=== PATIENT | female | born 1930 | race Caucasian/White ===

== ENCOUNTER 2017-04-12 17:28 | Inpatient (IN) | payer OTHER ==
[~2017-04-12] VITALS: Ht 172.7 cm; Wt 93.0 kg
[2017-04-12] VITALS (12 sets, daily range): BP systolic 51–129; BP diastolic 36–66
[~2017-04-12 17:28] MED LIST: ACET325T9 PO; ACET650S19 PO; AMLO10TA2 PO; CHOL200074 PO; CITA40TA5 PO; DOCU100C28 PO; DOCU100T5 PO; DONE23TA3 PO; HYDR-971 PO; INSU100I13 SQ; INSU100V31 SQ; LISI-334 PO; LORA0.5T96 PO; MAGN2400 PO; METF500T9 PO; MULT-26 PO; PRAV40TA2 PO; SENN8.6T99 PO
[2017-04-12] MEDS ORDERED: PIPERACILLIN/TAZOBACTAM 3.375 GM in IV NORMAL SALINE 50ML 50 ML IV ONE (17:45)
[2017-04-12 18:26] LABS: BASO % 0 % (0-3); EOS % 1 % (0-3); HEMATOCRIT 38.1 % (36.0-47.0); HEMOGLOBIN 12.3 g/dL (12.0-15.5); LYMPH # 0.7 x10^3/uL (1.0-4.8); LYMPH % 10 % (24-48); MEAN CORPUSCULAR HEMOGLOBIN 30 pg (25-35); MEAN CORPUSCULAR HGB CONC 32 g/dL (31-37); MEAN CORPUSCULAR VOLUME 91 fL (79-100); MONO % 2 % (0-9); NEUT % 88 % (31-73); PLATELET COUNT 153 x10^3/uL (140-400); RED BLOOD COUNT 4.17 x10^6/uL (3.50-5.40); RED CELL DISTRIBUTION WIDTH 16.7 % (11.5-14.5); WHITE BLOOD COUNT 7.6 x10^3/uL (4.0-11.0)
[2017-04-12 18:28] LABS: BILIRUBIN,URINE NEGATIVE (NEG); GLUCOSE,URINE NEGATIVE (NEG); NITRITE,URINE POSITIVE (NEG); PROTEIN,URINE 30 mg/dL (NEG-TRACE); UROBILINOGEN,URINE 0.2 mg/dL (0.2 mg/dL)
[2017-04-12 18:34] LABS: BACTERIA,URINE MODERATE /HPF (0-FEW); WBC,URINE 20-40 /HPF (0-4)
[2017-04-12 18:35] LABS: SQUAMOUS EPITHELIAL CELL,UR FEW /LPF
[2017-04-12 19:14] LABS: GFR 52.2; POTASSIUM 5.1 mmol/L (3.5-5.1)
[2017-04-12 19:20] LABS: ALBUMIN/GLOBULIN RATIO 0.6 (1.0-1.7); MAGNESIUM 2.2 mg/dL (1.8-2.4); TOTAL BILIRUBIN 0.3 mg/dL (0.2-1.0); TOTAL PROTEIN 7.8 g/dL (6.4-8.2)
[2017-04-12] MEDS ORDERED: ONDANSETRON PF 4 MG/2 ML VIAL. IV PRN (20:30)
--- NOTE | 2017-04-12 21:54 | PHYS DOC ---
Past Medical History Past Medical History: Anxiety, Constipation, Dementia, Depression, Diabetes- Type II, Hypertension, Other Additional Past Medical Histor: Bilateral hand contractures. Past Surgical History: Other Additional Past Surgical Histo: L)masectomy, Other surgeries unk. Alcohol Use: None Drug Use: None Adult General Chief Complaint Chief Complaint: ASPIRATION HPI HPI Patient is a 87 year old female presenting to the emergency department for concern of aspiration pneumonia. Patient has chronic medical conditions and functions poorly and is a DO NOT RESUSCITATE patient but has been having choking spells after trying to eat or drink and there is concern of aspiration pneumonia. Patient cannot provide any information however she appears nontoxic but is quite cool to touch. Review of Systems Review of Systems Unable to obtain due to medical condition Current Medications Current Medications Current Medications Medications (Trade) Dose Ordered Sig/Phil Start Time Stop Time Status Last Admin Dose Admin Piperacillin Sod/ Tazobactam Sod 3.375 gm/Sodium Chloride 50 ml @ 100 mls/hr 1X ONCE 04/12/17 17:45 04/12/17 18:14 DC 04/12/17 18:29 100 MLS/HR Allergies Allergies Allergies Coded Allergies Type Severity Reaction Last Updated Verified I S O L A T I O N *CONTACT* Allergy Unknown 08/10/16 Yes No Known Medication Allergies Allergy Unknown 08/10/16 Yes Physical Exam Physical Exam Constitutional: Chronically ill elderly female HENT: Normocephalic, atraumatic, bilateral external ears normal, oropharynx dry , no oral exudates, nose normal. [] Eyes: PERRLA, EOMI, conjunctiva normal, no discharge. [] Neck: Normal range of motion, no tenderness, supple, no stridor. [] Cardiovascular:Heart rate regular rhythm, no murmur [] Lungs & Thorax: Bilateral breath sounds clear to auscultation [] Abdomen: Bowel sounds normal, soft, no tenderness, no masses, no pulsatile masses. [] Skin: Cool, dry, no erythema, no rash. [] Back: No tenderness, no CVA tenderness. [] Extremities: No tenderness, no cyanosis, no clubbing, ROM intact, no edema. [] Neurologic: Alert and oriented X 0 Current Patient Data Vital Signs Vital Signs Date Time Temp Pulse Resp B/P (MAP) Pulse Ox O2 Delivery O2 Flow Rate FiO2 04/12/17 19:12 68 28 115/61 (79) 96 04/12/17 17:42 Room Air 04/12/17 17:30 90.6 90.6 Lab Values Laboratory Tests Test 04/12/17 18:20 White Blood Count 7.6 x10^3/uL (4.0-11.0) Red Blood Count 4.17 x10^6/uL (3.50-5.40) Hemoglobin 12.3 g/dL (12.0-15.5) Hematocrit 38.1 % (36.0-47.0) Mean Corpuscular Volume 91 fL (79-100) Mean Corpuscular Hemoglobin 30 pg (25-35) Mean Corpuscular Hemoglobin Concent 32 g/dL (31-37) Red Cell Distribution Width 16.7 % (11.5-14.5) H Platelet Count 153 x10^3/uL (140-400) Neutrophils (%) (Auto) 88 % (31-73) H Lymphocytes (%) (Auto) 10 % (24-48) L Monocytes (%) (Auto) 2 % (0-9) Eosinophils (%) (Auto) 1 % (0-3) Basophils (%) (Auto) 0 % (0-3) Neutrophils # (Auto) 6.6 x10^3uL (1.8-7.7) Lymphocytes # (Auto) 0.7 x10^3/uL (1.0-4.8) L Monocytes # (Auto) 0.2 x10^3/uL (0.0-1.1) Eosinophils # (Auto) 0.0 x10^3/uL (0.0-0.7) Basophils # (Auto) 0.0 x10^3/uL (0.0-0.2) Prothrombin Time 13.0 SEC (11.7-14.0) Prothrombin Time INR 1.0 (0.8-1.1) PTT 55 SEC (24-38) H Urine Collection Type U cath Urine Color Yellow Urine Clarity Clear Urine pH 6.0 Urine Specific [place] 1.020 Urine Protein 30 mg/dL (NEG-TRACE) Urine Glucose (UA) Negative mg/dL (NEG) Urine Ketones (Stick) Negative mg/dL (NEG) Urine Blood Trace (NEG) Urine Nitrite Positive (NEG) Urine Bilirubin Negative (NEG) Urine Urobilinogen Dipstick 0.2 mg/dL (0.2 mg/dL) Urine Leukocyte Esterase Moderate (NEG) Urine RBC 1-2 /HPF (0-2) Urine WBC 20-40 /HPF (0-4) Urine Squamous Epithelial Cells Few /LPF Urine Bacteria Moderate /HPF (0-FEW) Urine Hyaline Casts Few /HPF Urine Mucus Slight /LPF Sodium Level 141 mmol/L (136-145) Potassium Level 5.1 mmol/L (3.5-5.1) Chloride Level 106 mmol/L (98-107) Carbon Dioxide Level 30 mmol/L (21-32) Anion Gap 5 (6-14) L Blood Urea Nitrogen 22 mg/dL (7-20) H Creatinine 1.0 mg/dL (0.6-1.0) Estimated GFR (Cockcroft-Gault) 52.2 BUN/Creatinine Ratio 22 (6-20) H Glucose Level 62 mg/dL (70-99) L Lactic Acid Level 1.3 mmol/L (0.4-2.0) Calcium Level 10.0 mg/dL (8.5-10.1) Magnesium Level 2.2 mg/dL (1.8-2.4) Total Bilirubin 0.3 mg/dL (0.2-1.0) Aspartate Amino Transferase (AST) 91 U/L (15-37) H Alanine Aminotransferase (ALT) 112 U/L (14-59) H Alkaline Phosphatase 135 U/L (46-116) H Creatine Kinase 59 U/L (26-192) Total Protein 7.8 g/dL (6.4-8.2) Albumin 3.0 g/dL (3.4-5.0) L Albumin/Globulin Ratio 0.6 (1.0-1.7) L Lipase 218 U/L (73-393) Thyroid Stimulating Hormone (TSH) 7.955 uIU/mL (0.358-3.74) H Laboratory Tests 04/12/17 18:20 Laboratory Tests 04/12/17 18:20 EKG EKG [] Radiology/Procedures Radiology/Procedures Chest x-ray shows normal mediastinum and normal heart size no obvious free air pneumothorax or opacity. Course & Med Decision Making Course & Med Decision Making Patient is profoundly hypo-thermic and was placed on bear hugger in addition to warm IV fluids. Patient was also placed on broad-spectrum antibiotics. Given her comorbidities and profound hypothermia she'll be placed in ICU. Patient admitted in critical condition. Critical care time of 35 minutes. Dragon Disclaimer Dragon Disclaimer This electronic medical record was generated, in whole or in part, using a voice recognition dictation system. Departure Departure Referrals: DEVIN BROWN MD (PCP) ZOHAIB CALLES DO Apr 12, 2017 21:54
[2017-04-12] MEDS ORDERED: VANCOMYCIN 1 GM in IV NORMAL SALINE 250ML 250 ML IV ONE (22:30)
[2017-04-12] MEDS ORDERED: IV NORMAL SALINE 1000ML BAG 1,000 ML IV ONE (22:30)
[2017-04-12] MEDS: DEXTROSE 50% 25 GM / 50ML DISP.SYRIN. IV PRN (22:32)
[2017-04-13] VITALS (25 sets, daily range): BP systolic 92–187; BP diastolic 49–80
[2017-04-13] MEDS ORDERED: NYST1POW2 PO (00:33)
[2017-04-13] MEDS ORDERED: NYST15CR2 TP (00:33)
--- NOTE | 2017-04-13 00:38 | ACF ---
Admission Forms Criteria FEVER Clinical Indications for Inpatient Care (Place 'X' for any and all applicable criteria): Ongoing inpatient care may be indicated for fever with ANY ONE of the following[ D] (5)(27)(28)(29)(30)(31): [ ]I. Bacteremia [ ]II. Evidence of significant systemic illness as indicated by ANY ONE of the following: [ ]a) Persistently high temperatures greater than 103.1 degrees F ( 39.5 degrees C) (oral) [ ]b) New-onset hypoxia [ ]c) Hemodynamic instability [ ]d) Mental status changes [ ]e) Decreased urine output due to developing renal insufficiency [ ]f) New focal neurologic deficit (eg, stroke) [ ]g) Seizures [ ]h) Rigors [ ]i) Dehydration or hypovolemia [ ]j) Inadequate oral intake [ ]III. Patient in the immediate postoperative period with ANY ONE of the following (E)(23)(24): [ ]a) Evidence of specific localizing infection requiring ongoing inpatient evaluation or treatment (eg,abscess, severe pneumonia, wound infection ) [ ]b) Known or suspected cause of fever requiring ongoing inpatient evaluation or treatment (eg, DVT) [ ]c) Evidence of malignant hyperthermia (eg, unexplained tachycardia and muscle rigidity after depolarizing muscular blocking agent or inhaled anesthetic agent) [X]IV. Suspected cause requiring acute care (eg, endocarditis, meningitis) [ ]V. High suspicion of bacteremia as indicated by severe constitutional symptoms in patient at high risk as indicated by ANY ONE of the following: [ ]a) Immunocompromised state [D](22) [ ]b) Age <3 years or >65 years [ ]c) Severe comorbidities (eg, poorly controlled diabetes, severe COPD) [ ]. High suspicion for fungal infection as indicated by ANY ONE of the following (22)(25): [ ]a) Febrile neutropenia (WBC <500/mm3 (0.5 X 109/L)) for >4 days despite broad spectrum antibiotics [ ]b) Imaging findings suggestive of fungal infection [ ]c) Immunocompromised state [ ]d) Immunocompromised patient colonized with Aspergillus species [ ]VII. Evidence of infection of medical devices such as implanted catheters or exposed hardware [ ]VIII. Suspected neuroleptic malignant syndrome as evidenced by ALL of the following (15): [ ]a) Recent use of neuroleptic medication (eg, haloperidol, prochlorperazine, metoclopramide) [ ]b) New-onset muscle rigidity Extended stay beyond goal length of stay for primary condition may be needed until ALL of the following are present(16)(17)(18)(19)(20)(21): [ ]a) Temperature status acceptable as indicated by ANY ONE of the following: [ ]i) Temp <38.1C (100.5 F) (oral) [ ]ii) Temp as expected for disease process and care performable at next level of care [ ]b) Hemodynamic stability [ ]c) Cultures negative or infection identified and under adequate treatment [ ]d) Behavior or mental status abnormalities absent or manageable at lower level of care (Also use Mental Status Change Criteria Form) for further information. [ ]e) Medical comorbidities absent or manageable at a lower level of care The original [facility] [employer] content created by [facility] has been revised. The portions of the content which have been revised are identified through the use of italic text or in bold, and [facility] has neither reviewed nor approved the modified material. All other unmodified content is copyright [facility]. Please see references footnoted in the original [facility] [employer] edition 2016 Admission Criteria Met?: Yes BIBI MENJIVAR Apr 13, 2017 00:37
[2017-04-13] MEDS: IV NORMAL SALINE 1000ML BAG 1,000 ML IV SCH ×2 (04:04→09:07)
[2017-04-13 04:39] LABS: BASO % 0 % (0-3); EOS % 0 % (0-3); HEMATOCRIT 34.2 % (36.0-47.0); HEMOGLOBIN 11.1 g/dL (12.0-15.5); LYMPH # 0.4 x10^3/uL (1.0-4.8); LYMPH % 7 % (24-48); MEAN CORPUSCULAR HEMOGLOBIN 29 pg (25-35); MEAN CORPUSCULAR HGB CONC 33 g/dL (31-37); MEAN CORPUSCULAR VOLUME 91 fL (79-100); MONO % 3 % (0-9); NEUT % 90 % (31-73); PLATELET COUNT 127 x10^3/uL (140-400); RED BLOOD COUNT 3.77 x10^6/uL (3.50-5.40); RED CELL DISTRIBUTION WIDTH 16.7 % (11.5-14.5); WHITE BLOOD COUNT 6.7 x10^3/uL (4.0-11.0)
[2017-04-13 04:59] LABS: CALCIUM 8.8 mg/dL (8.5-10.1); CREATININE 1.1 mg/dL (0.6-1.0); GFR 46.8; POTASSIUM 5.8 mmol/L (3.5-5.1)
[2017-04-13] MEDS: DEXTROSE 50% 25 GM / 50ML DISP.SYRIN. IV PRN (05:42)
[2017-04-13 07:48] LABS: PLT ESTIMATE DECREASED (ADEQUATE)
[2017-04-13 07:50] LABS: ANISOCYTOSIS PRESENT; TOXIC GRANULATION PRESENT
--- NOTE | 2017-04-13 07:53 | PDOC ---
Infectious Disease Note Vital Sign Vital Signs Vital Signs Date Time Temp Pulse Resp B/P (MAP) Pulse Ox O2 Delivery O2 Flow Rate FiO2 04/13/17 07:00 97.9 104 34 124/59 (80) 100 Room Air 97.9 Labs Lab Laboratory Tests Test 04/12/17 18:20 04/12/17 21:57 04/12/17 22:20 04/12/17 23:39 White Blood Count 7.6 x10^3/uL (4.0-11.0) Red Blood Count 4.17 x10^6/uL (3.50-5.40) Hemoglobin 12.3 g/dL (12.0-15.5) Hematocrit 38.1 % (36.0-47.0) Mean Corpuscular Volume 91 fL (79-100) Mean Corpuscular Hemoglobin 30 pg (25-35) Mean Corpuscular Hemoglobin Concent 32 g/dL (31-37) Red Cell Distribution Width 16.7 % (11.5-14.5) Platelet Count 153 x10^3/uL (140-400) Neutrophils (%) (Auto) 88 % (31-73) Lymphocytes (%) (Auto) 10 % (24-48) Monocytes (%) (Auto) 2 % (0-9) Eosinophils (%) (Auto) 1 % (0-3) Basophils (%) (Auto) 0 % (0-3) Neutrophils # (Auto) 6.6 x10^3uL (1.8-7.7) Lymphocytes # (Auto) 0.7 x10^3/uL (1.0-4.8) Monocytes # (Auto) 0.2 x10^3/uL (0.0-1.1) Eosinophils # (Auto) 0.0 x10^3/uL (0.0-0.7) Basophils # (Auto) 0.0 x10^3/uL (0.0-0.2) Prothrombin Time 13.0 SEC (11.7-14.0) Prothromb Time International Ratio 1.0 (0.8-1.1) Activated Partial Thromboplast Time 55 SEC (24-38) Urine Collection Type U cath Urine Color Yellow Urine Clarity Clear Urine pH 6.0 Urine Specific [place] 1.020 Urine Protein 30 mg/dL (NEG-TRACE) Urine Glucose (UA) Negative mg/dL (NEG) Urine Ketones (Stick) Negative mg/dL (NEG) Urine Blood Trace (NEG) Urine Nitrite Positive (NEG) Urine Bilirubin Negative (NEG) Urine Urobilinogen Dipstick 0.2 mg/dL (0.2 mg/dL) Urine Leukocyte Esterase Moderate (NEG) Urine RBC 1-2 /HPF (0-2) Urine WBC 20-40 /HPF (0-4) Urine Squamous Epithelial Cells Few /LPF Urine Bacteria Moderate /HPF (0-FEW) Urine Hyaline Casts Few /HPF Urine Mucus Slight /LPF Sodium Level 141 mmol/L (136-145) Potassium Level 5.1 mmol/L (3.5-5.1) Chloride Level 106 mmol/L (98-107) Carbon Dioxide Level 30 mmol/L (21-32) Anion Gap 5 (6-14) Blood Urea Nitrogen 22 mg/dL (7-20) Creatinine 1.0 mg/dL (0.6-1.0) Estimated GFR (Cockcroft-Gault) 52.2 BUN/Creatinine Ratio 22 (6-20) Glucose Level 62 mg/dL (70-99) 42 mg/dL (70-99) Lactic Acid Level 1.3 mmol/L (0.4-2.0) Calcium Level 10.0 mg/dL (8.5-10.1) Magnesium Level 2.2 mg/dL (1.8-2.4) Total Bilirubin 0.3 mg/dL (0.2-1.0) Aspartate Amino Transf (AST/SGOT) 91 U/L (15-37) Alanine Aminotransferase (ALT/SGPT) 112 U/L (14-59) Alkaline Phosphatase 135 U/L (46-116) Creatine Kinase 59 U/L (26-192) Total Protein 7.8 g/dL (6.4-8.2) Albumin 3.0 g/dL (3.4-5.0) Albumin/Globulin Ratio 0.6 (1.0-1.7) Lipase 218 U/L (73-393) Thyroid Stimulating Hormone (TSH) 7.955 uIU/mL (0.358-3.74) Glucose (Fingerstick) 33 mg/dL (70-99) 138 mg/dL (70-99) Test 04/13/17 03:55 04/13/17 06:04 White Blood Count 6.7 x10^3/uL (4.0-11.0) Red Blood Count 3.77 x10^6/uL (3.50-5.40) Hemoglobin 11.1 g/dL (12.0-15.5) Hematocrit 34.2 % (36.0-47.0) Mean Corpuscular Volume 91 fL (79-100) Mean Corpuscular Hemoglobin 29 pg (25-35) Mean Corpuscular Hemoglobin Concent 33 g/dL (31-37) Red Cell Distribution Width 16.7 % (11.5-14.5) Platelet Count 127 x10^3/uL (140-400) Neutrophils (%) (Auto) 90 % (31-73) Lymphocytes (%) (Auto) 7 % (24-48) Monocytes (%) (Auto) 3 % (0-9) Eosinophils (%) (Auto) 0 % (0-3) Basophils (%) (Auto) 0 % (0-3) Neutrophils # (Auto) 6.0 x10^3uL (1.8-7.7) Lymphocytes # (Auto) 0.4 x10^3/uL (1.0-4.8) Monocytes # (Auto) 0.2 x10^3/uL (0.0-1.1) Eosinophils # (Auto) 0.0 x10^3/uL (0.0-0.7) Basophils # (Auto) 0.0 x10^3/uL (0.0-0.2) Segmented Neutrophils % 89 % (35-66) Band Neutrophils % 1 % (0-9) Lymphocytes % 8 % (24-48) Monocytes % 2 % (0-10) Toxic Granulation Present Platelet Estimate Decreased (ADEQUATE) Large Platelets Present Anisocytosis Present Sodium Level 141 mmol/L (136-145) Potassium Level 5.8 mmol/L (3.5-5.1) Chloride Level 109 mmol/L (98-107) Carbon Dioxide Level 26 mmol/L (21-32) Anion Gap 6 (6-14) Blood Urea Nitrogen 21 mg/dL (7-20) Creatinine 1.1 mg/dL (0.6-1.0) Estimated GFR (Cockcroft-Gault) 46.8 Glucose Level 49 mg/dL (70-99) Calcium Level 8.8 mg/dL (8.5-10.1) Glucose (Fingerstick) 148 mg/dL (70-99) Objective Assessment Aspiration pneumonia Encephalopathy Hypotension responded to fluids Dementia Hypothermia Plan Plan of Care [facility] supportive care check cultures MARIA E CABALLERO MD Apr 13, 2017 07:53
--- NOTE | 2017-04-13 08:27 | RAD ---
Indication shortness of air. Change in mental status. Protocol study A single view of the chest was obtained. Comparison is made to an exam 08/14/2016. Inspiratory effort is suboptimal but similar to the previous exam. Pulmonary vasculature is normal given the level of inspiratory effort. There is no focal infiltrate. A significant change compared to the previous exam is not seen. Substantial degenerative changes are noted about the shoulders. Bipolar cardiac pacing device is noted. IMPRESSION: No acute or focal process. No significant change
--- NOTE | 2017-04-13 08:27 | CONS ---
DATE OF CONSULTATION: 04/13/2017 REQUESTING PHYSICIAN: Dr. Khris Andrade. REASON FOR CONSULTATION: Possible sepsis. HISTORY OF PRESENT ILLNESS: This is an 87-year-old -[place] female, who is a [facility], who is [facility], nonverbal for 3 years evidently, who was brought in because of she was choking on the food trying to eat or drink. The patient was noted to be hypotensive, hypothermic responded to fluids and the temperature is improving ____. The patient has been given one dose each of vancomycin, Levaquin and Zosyn and consult has been requested. The patient is nonverbal. All the information was obtained through chart review and discussing with the patient's nurse. PAST MEDICAL HISTORY: Positive for dementia, depression, diabetes, hypertension, bilateral hand contractures, has had mastectomy. SOCIAL HISTORY: Unable to obtain other than the patient is a [facility] resident with [facility]. ALLERGIES: No known drug allergies listed. CURRENT MEDICATIONS: Reviewed. REVIEW OF SYSTEMS: As per HPI, all other systems reviewed are negative. PHYSICAL EXAMINATION: GENERAL: Awake, nonverbal female, not in distress. VITAL SIGNS: Stable, afebrile. HEENT: NAD. NECK: Supple, no JVP, no lymphadenopathy. LUNGS: Clear. HEART: S1, S2 regular. ABDOMEN: Benign. EXTREMITIES: Contractures present. NEUROLOGIC: The patient does not follow commands. NEUROLOGICAL: The patient is unresponsive. LABORATORY DATA: White count is 6.7, hemoglobin 11.1, platelets 127,000. BUN 22, creatinine 1, glucose was low 33 at one point. Lactic acid normal. Urinalysis showed 20-40 wbc. Cultures are pending. Chest x-ray is no obvious infiltrate. IMPRESSION: 1. Suspected aspiration pneumonia. 2. Hypotension, responded to fluids. 3. Hypothermia. 4. Dementia. 5. Encephalopathy. RECOMMENDATIONS: I would use Zosyn, no need to use of vancomycin and Levaquin. Supportive care. We will check the cultures and continue to follow. Overall, long-term prognosis is poor. Thank you very much, Dr. Andrade for giving me the opportunity to participate in this patient's care. MARIA E CABALLERO MD DR: SHAHANA/mike JOB#: [id number] / [id number]
[2017-04-13] MEDS ORDERED: IV DEXTROSE 5% 1,000 ML IV SCH (08:45)
[2017-04-13] MEDS ORDERED: IV DEXTROSE 5% 500 ML IV ONE (08:53)
--- NOTE | 2017-04-13 09:41 | HP ---
ADMIT DATE: 04/12/2017 CHIEF COMPLAINT AND HISTORY OF PRESENT ILLNESS: This is an 87-year-old female who was brought to the Emergency Room with a concern of aspiration pneumonia. She had been choking and coughing with eating for the last several days, become less responsive, was found in the Emergency Room to be profoundly hypothermic with a temperature of 98.5 with relatively normal lab work and evidence of urinary tract infection, admitted with the likely diagnosis of sepsis related either to aspiration pneumonia or her urinary tract infection. PAST MEDICAL HISTORY: Remarkable for anxiety, dementia, depression, diabetes, hypertension. PAST SURGICAL HISTORY: She has had a prior left mastectomy. MEDICATIONS: Brought with the patient, listed on the computer and have been addressed. ALLERGIES: She has no known medication allergies. SOCIAL HISTORY: She is nonsmoker, nondrinker, does not use drugs. FAMILY HISTORY: Noncontributory. REVIEW OF SYSTEMS: Unobtainable due to her encephalopathic state where she is barely arousable and does have the underlying dementia in addition. PHYSICAL EXAMINATION: GENERAL: She is a well-developed, well-nourished female in no acute distress at rest. VITAL SIGNS: Stable. She is afebrile. She was initially somewhat hypotensive, but this is improved. HEAD, EYES, EARS, NOSE, AND THROAT: Unremarkable. NECK: Supple without any thyromegaly. CHEST: Clear to auscultation and percussion. HEART: Regular rate and rhythm without S3, S4, or murmur. ABDOMEN: Soft, nontender without hepatosplenomegaly or masses. EXTREMITIES: Without cyanosis, clubbing or edema. NEUROLOGICAL: Remarkable for the encephalopathy. She is on a Rafat Hugger for warming. Her temperature has come up in the 97.6 range. She has had a couple of episodes of hypoglycemia and upon review of her outside medicines are only possible causes for this would be the insulin, although she has taken Metformin in addition, but this normally does not cause hypoglycemia. White count is normal. She does have a left shift, however and she has been hypoglycemic, but is 148 this morning. Potassium is elevated at 5.8 this morning and creatinine at 1.1. We will recheck the potassium here later. She has so far got doses of Zosyn, Levaquin, and vancomycin and ID has been consulted to see her. IMPRESSION: Hypothermia and mental status change in a patient with multiple other problems listed above with hypomagnesemia in addition. PLAN: The patient has been admitted. Warming will be continued as needed. Dopamine will be given if blood pressures require the same level. They seemed to be improved this morning with hydration. Antibiotics will be continued and the patient will be monitored, managed and treated appropriately. ADDENDUM: The patient does seem to be doing some jerking movements during my visit, which would possibly be consistent with some seizure activity and Neurology will be asked to see her for the same. DEVIN BROWN MD DR: HALIE/mike JOB#: [id number] / [id number]
--- NOTE | 2017-04-13 09:41 | PDOC2 ---
NEUROLOGY CONSULT Date of Admission Date of Admission DATE: 04/13/17 TIME: 09:34 Reason for Consult Reason for Consult: Possible seizure activity Referring Physician Referring Physician: Dr. Andrade Source Source: Chart review History of Present Illness History of Present Illness The patient is an 87-year-old right-handed female alf resident with end -stage dementia who has not verbalized or walked in more than 3 years. She has been getting food and has been aspirating. Admission she was hypothermic and hypotensive. I am asked to see her regarding possible seizure activity. The ICU nurse does not know of any seizure activity nor are there any notations about it in the emergency department record. Past Medical History Cardiovascular: HTN, Hyperlipidemia CENTRAL NERVOUS SYSTEM: Dementia (Alzheimer's) Heme/Onc: Cancer ( breast) Psych: Anxiety, Depression Musculoskeletal: Osteoarthritis, Other ( rib fractures) Renal/: Urinary Incontinence Endocrine: Diabetes Past Surgical History Past Surgical History: Cholecystectomy, Mastectomy ( left mastectomy, right lumpectomy), Hysterectomy, Colectomy, Other ( right carpal tunnel surgery) Family History Family History: No pertinent hx Social History Social History Not obtainable Current Medications Current Medications Current Medications Piperacillin Sod/ Tazobactam Sod 3.375 gm/Sodium Chloride 50 ml @ 100 mls/hr 1X ONCE IV Last administered on 04/12/17 18:29; Start 04/12/17 at 17:45; Stop 04/12/17 at 18:14; Status DC Levofloxacin/ Dextrose 150 ml @ 100 mls/hr 1X ONCE IV Last administered on 19:55; Start 04/12/17 at 19:45; Stop 04/12/17 at 21:14; Status DC Ondansetron HCl (Zofran) 4 mg PRN Q8HRS PRN IV NAUSEA/VOMITING; Start 04/12/17 at 20:30; Stop 04/13/17 at 20:29 Dextrose (Dextrose 50%-Water Syringe) 25 gm PRN 1X PRN IV LOW BLOOD SUGAR Last administered on 04/13/17 05:42; Start 04/12/17 at 22:00 Sodium Chloride 1,000 ml @ 150 mls/hr 1X ONCE IV Last administered on 22:33; Start 04/12/17 at 22:30; Stop 04/13/17 at 05:09; Status DC Vancomycin HCl 1 gm/Sodium Chloride 250 ml @ 166.667 mls/hr 1X ONCE IV Last administered on 04/12/17 22:33; Start 04/12/17 at 22:30; Stop 04/12/17 at 23:59; Status DC Dopamine HCl/ Dextrose 250 ml @ 16.925 mls/ hr CONT PRN IV SEE I/O RECORD; Start 04/12/17 at 22:30 Sodium Chloride 1,000 ml @ 100 mls/hr Q10H IV Last administered on 04/13/17 04 :04; Start 04/13/17 at 04:00 Piperacillin Sod/ Tazobactam Sod 3.375 gm/Sodium Chloride 50 ml @ 100 mls/hr Q6HRS IV ; Start 04/13/17 at 08:00 Dextrose 1,000 ml @ 100 mls/hr Q10H IV Last administered on 04/13/17 08:45; Start 04/13/17 at 08:45; Stop 04/13/17 at 09:24; Status DC Dextrose 500 ml @ As Directed STK-MED ONCE IV ; Start 04/13/17 at 08:53; Stop at 08:54; Status DC Dextrose 1,000 ml @ 100 mls/hr Q10H IV ; Start 04/13/17 at 09:30 Active Scripts Active [place] 5-325 Tablet (Acetaminophen/Hydrocodone Bitart) 1 Each Tablet 1 Tab PO PRN TID PRN Reported Nystatin-Triamcinolone Cream (Nystatin/Triamcin) 15 Gm Cream..g. 1 [place] TP BID PRN Nystatin 1 Each Powder.ea. 1 Each PO TID Senokot (Sennosides) 8.6 Mg Tablet 1 Tab PO PRN BID Milk Of Magnesia (Magnesium Hydroxide) 2,400 Mg/10 Ml Oral.susp 30 Ml PO PRN DAILY Lantus Solostar (Insulin Glargine,Hum.rec.anlog) 100 Unit/1 Ml Insuln.pen 10 Unit SQ QHS Docusate Sodium 100 Mg Capsule 1 Cap PO DAILY Tylenol (Acetaminophen) 325 Mg Tablet 650 Mg PO PRN Q6HRS Novolog (Insulin Aspart) 100 Unit/1 Ml Vial 0 SQ QIDACHS Metformin Hcl Er (Metformin Hcl) 500 Mg Tab.er.24h 500 Mg PO DAILYWSUP Citalopram Hbr (Citalopram Hydrobromide) 40 Mg Tablet 10 Mg PO DAILY Aricept (Donepezil Hcl) 23 Mg Tablet 23 Mg PO HS Amlodipine Besylate 10 Mg Tablet 5 Mg PO DAILY Docusate Sodium 100 Mg Tablet 100 Mg PO PRN DAILY Multivitamins (Multivitamin) 1 Each Tab.chew 1 Each PO DAILY Ativan (Lorazepam) 0.5 Mg Tablet 0.5 Mg PO PRN BID PRN Allergies Allergies: Coded Allergies: I S O L A T I O N *CONTACT* (Verified Allergy, Unknown, 08/10/16) mrsa No Known Medication Allergies (Verified Allergy, Unknown, 08/10/16) ROS Review of System Unattainable Physical Exam Physical Examination PHYSICAL EXAMINATION: Vital signs: see above. General appearance is normal and in no acute distress. She is on rewarming devices HEENT: Normocephalic and nontraumatic. Eyes, nose, ears, and throat are unremarkable. Neck is supple. No lymphadenopathy. No bruits are heard over the carotid artery. No crepitus. NEUROLOGIC: She keeps eyes tightly closed. She has bilateral grass reflexes. I do not elicit any other motor activity. Reflexes are 0+ with silent plant responses. She does not respond to pinpricks inflation. She does not cooperate with cerebellar testing. There is no facial asymmetry. Vitals VITALS Vital Signs Date Time Temp Pulse Resp B/P (MAP) Pulse Ox O2 Delivery O2 Flow Rate FiO2 04/13/17 07:00 97.9 104 34 124/59 (80) 100 Room Air 97.9 Labs Labs Laboratory Tests Test 04/12/17 18:20 04/12/17 21:57 04/12/17 22:20 04/12/17 23:39 White Blood Count 7.6 x10^3/uL (4.0-11.0) Red Blood Count 4.17 x10^6/uL (3.50-5.40) Hemoglobin 12.3 g/dL (12.0-15.5) Hematocrit 38.1 % (36.0-47.0) Mean Corpuscular Volume 91 fL (79-100) Mean Corpuscular Hemoglobin 30 pg (25-35) Mean Corpuscular Hemoglobin Concent 32 g/dL (31-37) Red Cell Distribution Width 16.7 % (11.5-14.5) Platelet Count 153 x10^3/uL (140-400) Neutrophils (%) (Auto) 88 % (31-73) Lymphocytes (%) (Auto) 10 % (24-48) Monocytes (%) (Auto) 2 % (0-9) Eosinophils (%) (Auto) 1 % (0-3) Basophils (%) (Auto) 0 % (0-3) Neutrophils # (Auto) 6.6 x10^3uL (1.8-7.7) Lymphocytes # (Auto) 0.7 x10^3/uL (1.0-4.8) Monocytes # (Auto) 0.2 x10^3/uL (0.0-1.1) Eosinophils # (Auto) 0.0 x10^3/uL (0.0-0.7) Basophils # (Auto) 0.0 x10^3/uL (0.0-0.2) Prothrombin Time 13.0 SEC (11.7-14.0) Prothromb Time International Ratio 1.0 (0.8-1.1) Activated Partial Thromboplast Time 55 SEC (24-38) Urine Collection Type U cath Urine Color Yellow Urine Clarity Clear Urine pH 6.0 Urine Specific [place] 1.020 Urine Protein 30 mg/dL (NEG-TRACE) Urine Glucose (UA) Negative mg/dL (NEG) Urine Ketones (Stick) Negative mg/dL (NEG) Urine Blood Trace (NEG) Urine Nitrite Positive (NEG) Urine Bilirubin Negative (NEG) Urine Urobilinogen Dipstick 0.2 mg/dL (0.2 mg/dL) Urine Leukocyte Esterase Moderate (NEG) Urine RBC 1-2 /HPF (0-2) Urine WBC 20-40 /HPF (0-4) Urine Squamous Epithelial Cells Few /LPF Urine Bacteria Moderate /HPF (0-FEW) Urine Hyaline Casts Few /HPF Urine Mucus Slight /LPF Sodium Level 141 mmol/L (136-145) Potassium Level 5.1 mmol/L (3.5-5.1) Chloride Level 106 mmol/L (98-107) Carbon Dioxide Level 30 mmol/L (21-32) Anion Gap 5 (6-14) Blood Urea Nitrogen 22 mg/dL (7-20) Creatinine 1.0 mg/dL (0.6-1.0) Estimated GFR (Cockcroft-Gault) 52.2 BUN/Creatinine Ratio 22 (6-20) Glucose Level 62 mg/dL (70-99) 42 mg/dL (70-99) Lactic Acid Level 1.3 mmol/L (0.4-2.0) Calcium Level 10.0 mg/dL (8.5-10.1) Magnesium Level 2.2 mg/dL (1.8-2.4) Total Bilirubin 0.3 mg/dL (0.2-1.0) Aspartate Amino Transf (AST/SGOT) 91 U/L (15-37) Alanine Aminotransferase (ALT/SGPT) 112 U/L (14-59) Alkaline Phosphatase 135 U/L (46-116) Creatine Kinase 59 U/L (26-192) Total Protein 7.8 g/dL (6.4-8.2) Albumin 3.0 g/dL (3.4-5.0) Albumin/Globulin Ratio 0.6 (1.0-1.7) Lipase 218 U/L (73-393) Thyroid Stimulating Hormone (TSH) 7.955 uIU/mL (0.358-3.74) Glucose (Fingerstick) 33 mg/dL (70-99) 138 mg/dL (70-99) Test 04/13/17 03:55 04/13/17 06:04 04/13/17 08:47 White Blood Count 6.7 x10^3/uL (4.0-11.0) Red Blood Count 3.77 x10^6/uL (3.50-5.40) Hemoglobin 11.1 g/dL (12.0-15.5) Hematocrit 34.2 % (36.0-47.0) Mean Corpuscular Volume 91 fL (79-100) Mean Corpuscular Hemoglobin 29 pg (25-35) Mean Corpuscular Hemoglobin Concent 33 g/dL (31-37) Red Cell Distribution Width 16.7 % (11.5-14.5) Platelet Count 127 x10^3/uL (140-400) Neutrophils (%) (Auto) 90 % (31-73) Lymphocytes (%) (Auto) 7 % (24-48) Monocytes (%) (Auto) 3 % (0-9) Eosinophils (%) (Auto) 0 % (0-3) Basophils (%) (Auto) 0 % (0-3) Neutrophils # (Auto) 6.0 x10^3uL (1.8-7.7) Lymphocytes # (Auto) 0.4 x10^3/uL (1.0-4.8) Monocytes # (Auto) 0.2 x10^3/uL (0.0-1.1) Eosinophils # (Auto) 0.0 x10^3/uL (0.0-0.7) Basophils # (Auto) 0.0 x10^3/uL (0.0-0.2) Segmented Neutrophils % 89 % (35-66) Band Neutrophils % 1 % (0-9) Lymphocytes % 8 % (24-48) Monocytes % 2 % (0-10) Toxic Granulation Present Platelet Estimate Decreased (ADEQUATE) Large Platelets Present Anisocytosis Present Sodium Level 141 mmol/L (136-145) Potassium Level 5.8 mmol/L (3.5-5.1) Chloride Level 109 mmol/L (98-107) Carbon Dioxide Level 26 mmol/L (21-32) Anion Gap 6 (6-14) Blood Urea Nitrogen 21 mg/dL (7-20) Creatinine 1.1 mg/dL (0.6-1.0) Estimated GFR (Cockcroft-Gault) 46.8 Glucose Level 49 mg/dL (70-99) Calcium Level 8.8 mg/dL (8.5-10.1) Glucose (Fingerstick) 148 mg/dL (70-99) 52 mg/dL (70-99) Laboratory Tests Test 04/12/17 18:20 04/12/17 21:57 04/12/17 22:20 04/12/17 23:39 White Blood Count 7.6 x10^3/uL (4.0-11.0) Red Blood Count 4.17 x10^6/uL (3.50-5.40) Hemoglobin 12.3 g/dL (12.0-15.5) Hematocrit 38.1 % (36.0-47.0) Mean Corpuscular Volume 91 fL (79-100) Mean Corpuscular Hemoglobin 30 pg (25-35) Mean Corpuscular Hemoglobin Concent 32 g/dL (31-37) Red Cell Distribution Width 16.7 % (11.5-14.5) Platelet Count 153 x10^3/uL (140-400) Neutrophils (%) (Auto) 88 % (31-73) Lymphocytes (%) (Auto) 10 % (24-48) Monocytes (%) (Auto) 2 % (0-9) Eosinophils (%) (Auto) 1 % (0-3) Basophils (%) (Auto) 0 % (0-3) Neutrophils # (Auto) 6.6 x10^3uL (1.8-7.7) Lymphocytes # (Auto) 0.7 x10^3/uL (1.0-4.8) Monocytes # (Auto) 0.2 x10^3/uL (0.0-1.1) Eosinophils # (Auto) 0.0 x10^3/uL (0.0-0.7) Basophils # (Auto) 0.0 x10^3/uL (0.0-0.2) Prothrombin Time 13.0 SEC (11.7-14.0) Prothromb Time International Ratio 1.0 (0.8-1.1) Activated Partial Thromboplast Time 55 SEC (24-38) Urine Collection Type U cath Urine Color Yellow Urine Clarity Clear Urine pH 6.0 Urine Specific [place] 1.020 Urine Protein 30 mg/dL (NEG-TRACE) Urine Glucose (UA) Negative mg/dL (NEG) Urine Ketones (Stick) Negative mg/dL (NEG) Urine Blood Trace (NEG) Urine Nitrite Positive (NEG) Urine Bilirubin Negative (NEG) Urine Urobilinogen Dipstick 0.2 mg/dL (0.2 mg/dL) Urine Leukocyte Esterase Moderate (NEG) Urine RBC 1-2 /HPF (0-2) Urine WBC 20-40 /HPF (0-4) Urine Squamous Epithelial Cells Few /LPF Urine Bacteria Moderate /HPF (0-FEW) Urine Hyaline Casts Few /HPF Urine Mucus Slight /LPF Sodium Level 141 mmol/L (136-145) Potassium Level 5.1 mmol/L (3.5-5.1) Chloride Level 106 mmol/L (98-107) Carbon Dioxide Level 30 mmol/L (21-32) Anion Gap 5 (6-14) Blood Urea Nitrogen 22 mg/dL (7-20) Creatinine 1.0 mg/dL (0.6-1.0) Estimated GFR (Cockcroft-Gault) 52.2 BUN/Creatinine Ratio 22 (6-20) Glucose Level 62 mg/dL (70-99) 42 mg/dL (70-99) Lactic Acid Level 1.3 mmol/L (0.4-2.0) Calcium Level 10.0 mg/dL (8.5-10.1) Magnesium Level 2.2 mg/dL (1.8-2.4) Total Bilirubin 0.3 mg/dL (0.2-1.0) Aspartate Amino Transf (AST/SGOT) 91 U/L (15-37) Alanine Aminotransferase (ALT/SGPT) 112 U/L (14-59) Alkaline Phosphatase 135 U/L (46-116) Creatine Kinase 59 U/L (26-192) Total Protein 7.8 g/dL (6.4-8.2) Albumin 3.0 g/dL (3.4-5.0) Albumin/Globulin Ratio 0.6 (1.0-1.7) Lipase 218 U/L (73-393) Thyroid Stimulating Hormone (TSH) 7.955 uIU/mL (0.358-3.74) Glucose (Fingerstick) 33 mg/dL (70-99) 138 mg/dL (70-99) Test 04/13/17 03:55 04/13/17 06:04 04/13/17 08:47 White Blood Count 6.7 x10^3/uL (4.0-11.0) Red Blood Count 3.77 x10^6/uL (3.50-5.40) Hemoglobin 11.1 g/dL (12.0-15.5) Hematocrit 34.2 % (36.0-47.0) Mean Corpuscular Volume 91 fL (79-100) Mean Corpuscular Hemoglobin 29 pg (25-35) Mean Corpuscular Hemoglobin Concent 33 g/dL (31-37) Red Cell Distribution Width 16.7 % (11.5-14.5) Platelet Count 127 x10^3/uL (140-400) Neutrophils (%) (Auto) 90 % (31-73) Lymphocytes (%) (Auto) 7 % (24-48) Monocytes (%) (Auto) 3 % (0-9) Eosinophils (%) (Auto) 0 % (0-3) Basophils (%) (Auto) 0 % (0-3) Neutrophils # (Auto) 6.0 x10^3uL (1.8-7.7) Lymphocytes # (Auto) 0.4 x10^3/uL (1.0-4.8) Monocytes # (Auto) 0.2 x10^3/uL (0.0-1.1) Eosinophils # (Auto) 0.0 x10^3/uL (0.0-0.7) Basophils # (Auto) 0.0 x10^3/uL (0.0-0.2) Segmented Neutrophils % 89 % (35-66) Band Neutrophils % 1 % (0-9) Lymphocytes % 8 % (24-48) Monocytes % 2 % (0-10) Toxic Granulation Present Platelet Estimate Decreased (ADEQUATE) Large Platelets Present Anisocytosis Present Sodium Level 141 mmol/L (136-145) Potassium Level 5.8 mmol/L (3.5-5.1) Chloride Level 109 mmol/L (98-107) Carbon Dioxide Level 26 mmol/L (21-32) Anion Gap 6 (6-14) Blood Urea Nitrogen 21 mg/dL (7-20) Creatinine 1.1 mg/dL (0.6-1.0) Estimated GFR (Cockcroft-Gault) 46.8 Glucose Level 49 mg/dL (70-99) Calcium Level 8.8 mg/dL (8.5-10.1) Glucose (Fingerstick) 148 mg/dL (70-99) 52 mg/dL (70-99) Assessment/Plan Assessment/Plan Impression: With the hypothermia and hypotension, possible seizure activity is not unexpected but as there is no evidence of seizure activity now, and the patient is voluntarily keeping her eyes squeezed shut, I see no need for further interventions such as EEG or starting this 87-year-old demented patient on an anticonvulsant. Recommendations: Support of medical care Hold off on EEG and anticonvulsants. Thank you for letting me help with the patient's care. MAUDE MARTÍNEZ MD Apr 13, 2017 09:41
[2017-04-13] MEDS: PIPERACILLIN/TAZOBACTAM 3.375 GM in IV NORMAL SALINE 50ML 50 ML IV SCH ×4 (09:53→23:51)
[2017-04-13] MEDS: IV DEXTROSE 10% 1,000 ML IV SCH ×2 (15:06→19:30)
[2017-04-14 03:05] VITALS: BP 136/73
[2017-04-14] MEDS: IV DEXTROSE 10% 1,000 ML IV SCH ×2 (03:35→16:12)
[2017-04-14 04:16] LABS: CALCIUM 8.8 mg/dL (8.5-10.1); CREATININE 1.3 mg/dL (0.6-1.0); GFR 38.6
[2017-04-14] MEDS: PIPERACILLIN/TAZOBACTAM 3.375 GM in IV NORMAL SALINE 50ML 50 ML IV SCH ×4 (05:21→23:55)
[2017-04-14] MEDS: IV NORMAL SALINE 1000ML BAG 1,000 ML IV SCH ×3 (05:21→19:37)
[2017-04-14 07:12] VITALS: BP 140/84
--- NOTE | 2017-04-14 08:24 | PDOC ---
GENERAL General: vss and afebrile. no further hypothermia. still with jerking movements throughout my exam and not really arousable this am and suspect seizure activity and will order eeg today. has gram negative rods in urine with ID and sensitivity pending. continue same. Problems: VITAL SIGNS Vital Signs: Vital Signs Date Time Temp Pulse Resp B/P (MAP) Pulse Ox O2 Delivery O2 Flow Rate FiO2 04/14/17 07:12 97.6 97 16 140/84 (102) 99 Room Air 97.6 I & O I & O Intake and Output 04/14/17 07:00 Intake Total 1100 ml Output Total 3580 ml Balance -2480 ml Intake Oral 0 ml IV Total 1100 ml Output Urine Total 3580 ml ALLERGIES Allergies: Allergies Coded Allergies Type Severity Reaction Last Updated Verified I S O L A T I O N *CONTACT* Allergy Unknown 08/10/16 Yes No Known Medication Allergies Allergy Unknown 08/10/16 Yes MEDS Medications: Current Medications Medications (Trade) Dose Ordered Sig/Phil Start Time Stop Time Status Last Admin Dose Admin Dextrose 1,000 ml @ 100 mls/hr Q10H 04/13/17 09:30 04/14/17 03:35 100 MLS/HR Dextrose (Dextrose 50%-Water Syringe) 25 gm PRN 1X PRN 04/12/17 22:00 04/13/17 05:42 25 GM Dopamine HCl/ Dextrose 250 ml @ 16.925 mls/ hr CONT PRN 04/12/17 22:30 Levofloxacin/ Dextrose 150 ml @ 100 mls/hr 1X ONCE 04/12/17 19:45 04/12/17 21:14 DC 04/12/17 19:55 100 MLS/HR Ondansetron HCl (Zofran) 4 mg PRN Q8HRS PRN 04/12/17 20:30 04/13/17 20:29 DC Piperacillin Sod/ Tazobactam Sod 3.375 gm/Sodium Chloride 50 ml @ 100 mls/hr Q6HRS 04/13/17 08:00 04/14/17 05:21 100 MLS/HR Sodium Chloride 1,000 ml @ 100 mls/hr Q10H 04/13/17 04:00 04/14/17 05:21 100 MLS/HR Vancomycin HCl 1 gm/Sodium Chloride 250 ml @ 166.667 mls/hr 1X ONCE 04/12/17 22:30 04/12/17 23:59 DC 04/12/17 22:33 166.667 MLS/HR LAB Lab: Laboratory Tests Test 04/13/17 08:47 04/13/17 09:51 04/13/17 10:50 04/13/17 11:30 Glucose (Fingerstick) 52 mg/dL (70-99) 170 mg/dL (70-99) 187 mg/dL (70-99) Potassium Level 5.2 mmol/L (3.5-5.1) Test 04/13/17 14:11 04/13/17 14:56 04/13/17 17:10 04/13/17 19:13 Glucose (Fingerstick) 69 mg/dL (70-99) 178 mg/dL (70-99) 109 mg/dL (70-99) 122 mg/dL (70-99) Test 04/13/17 21:09 04/13/17 23:11 04/14/17 01:10 04/14/17 03:00 Glucose (Fingerstick) 136 mg/dL (70-99) 156 mg/dL (70-99) 162 mg/dL (70-99) Sodium Level 143 mmol/L (136-145) Potassium Level 5.0 mmol/L (3.5-5.1) Chloride Level 109 mmol/L (98-107) Carbon Dioxide Level 23 mmol/L (21-32) Anion Gap 11 (6-14) Blood Urea Nitrogen 16 mg/dL (7-20) Creatinine 1.3 mg/dL (0.6-1.0) Estimated GFR (Cockcroft-Gault) 38.6 Glucose Level 185 mg/dL (70-99) Calcium Level 8.8 mg/dL (8.5-10.1) Test 04/14/17 03:17 04/14/17 05:01 04/14/17 07:03 04/14/17 07:28 Glucose (Fingerstick) 163 mg/dL (70-99) 185 mg/dL (70-99) 123 mg/dL (70-99) 111 mg/dL (70-99) DEVIN BROWN MD Apr 14, 2017 08:24
--- NOTE | 2017-04-14 09:32 | PDOC ---
Infectious Disease Note ROS ROS GEN: Denies fevers, chills, sweats HEENT: Denies blurred vision, sore throat CV: Denies chest pain RESP: Denies shortness of air, cough GI: Denies n/v/d NEURO: Denies confusion, dizziness MSK: Denies weakness, joint pain/swelling Vital Sign Vital Signs Vital Signs Date Time Temp Pulse Resp B/P (MAP) Pulse Ox O2 Delivery O2 Flow Rate FiO2 04/14/17 07:12 97.6 97 16 140/84 (102) 99 Room Air 97.6 Physical Exam PHYSICAL EXAM GENERAL: NAD, Alert HEENT: PERRL, OC/OP NECK: Supple, no JVD, no LN LUNGS: Clear HEART: S1S2, no gallop, no murmur ABD: Soft, NT, no organomegaly, no rebound EXT: No edema, no cyanosis GLOVE BRUSHER: Alert, oriented x 3, no focal neurologic deficit SKIN: No rash IV: ok Labs Lab Laboratory Tests Test 04/13/17 09:51 04/13/17 10:50 04/13/17 11:30 04/13/17 14:11 Glucose (Fingerstick) 170 mg/dL (70-99) 187 mg/dL (70-99) 69 mg/dL (70-99) Potassium Level 5.2 mmol/L (3.5-5.1) Test 04/13/17 14:56 04/13/17 17:10 04/13/17 19:13 04/13/17 21:09 Glucose (Fingerstick) 178 mg/dL (70-99) 109 mg/dL (70-99) 122 mg/dL (70-99) 136 mg/dL (70-99) Test 04/13/17 23:11 04/14/17 01:10 04/14/17 03:00 04/14/17 03:17 Glucose (Fingerstick) 156 mg/dL (70-99) 162 mg/dL (70-99) 163 mg/dL (70-99) Sodium Level 143 mmol/L (136-145) Potassium Level 5.0 mmol/L (3.5-5.1) Chloride Level 109 mmol/L (98-107) Carbon Dioxide Level 23 mmol/L (21-32) Anion Gap 11 (6-14) Blood Urea Nitrogen 16 mg/dL (7-20) Creatinine 1.3 mg/dL (0.6-1.0) Estimated GFR (Cockcroft-Gault) 38.6 Glucose Level 185 mg/dL (70-99) Calcium Level 8.8 mg/dL (8.5-10.1) Test 04/14/17 05:01 04/14/17 07:03 04/14/17 07:28 04/14/17 09:10 Glucose (Fingerstick) 185 mg/dL (70-99) 123 mg/dL (70-99) 111 mg/dL (70-99) 90 mg/dL (70-99) Micro URINE CULTURE Preliminary Preliminary report URINE CULTURE RES 1 Preliminary Gram negative rods Greater than 100,000 colony forming units per mL Performed at: [address] [id number] Pocketbook Maker: Shaina Bose MD, Phone: [phone] BLOOD CULTURE Final GRAM POSITIVE COCCI IN CLUSTERS, SUGGESTIVE OF STAPH, IN 1 OF 2 BOTTLES, ONE SET DRAWN. CALLED TO RIZWAN BUSTAMANTE RN ON 6S AT 8:30 ON 04/14/17 DW MT SENT TO [facility] FOR FURTHER WORKUP. Objective Assessment Aspiration pneumonia Encephalopathy Hypotension responded to fluids Dementia Hypothermia Plan Plan of Care zosyn supportive care check cultures MARIA E CABALLERO MD Apr 14, 2017 09:32
--- NOTE | 2017-04-14 10:04 | PDOC ---
Infectious Disease Note Subjective Subjective Pt unresponsive ROS ROS unable to do Vital Sign Vital Signs Vital Signs Date Time Temp Pulse Resp B/P (MAP) Pulse Ox O2 Delivery O2 Flow Rate FiO2 04/14/17 07:12 97.6 97 16 140/84 (102) 99 Room Air 97.6 Physical Exam PHYSICAL EXAM GENERAL: NAD, HEENT: PERRL, OC/OP NECK: Supple, no JVD, no LN LUNGS: Clear HEART: S1S2, no gallop, no murmur ABD: Soft, NT, no organomegaly, no rebound EXT: No edema, no cyanosis CHIEF METEOROLOGIST: unresponsive SKIN: No rash IV: ok Labs Lab Laboratory Tests Test 04/13/17 10:50 04/13/17 11:30 04/13/17 14:11 04/13/17 14:56 Glucose (Fingerstick) 187 mg/dL (70-99) 69 mg/dL (70-99) 178 mg/dL (70-99) Potassium Level 5.2 mmol/L (3.5-5.1) Test 04/13/17 17:10 04/13/17 19:13 04/13/17 21:09 04/13/17 23:11 Glucose (Fingerstick) 109 mg/dL (70-99) 122 mg/dL (70-99) 136 mg/dL (70-99) 156 mg/dL (70-99) Test 04/14/17 01:10 04/14/17 03:00 04/14/17 03:17 04/14/17 05:01 Glucose (Fingerstick) 162 mg/dL (70-99) 163 mg/dL (70-99) 185 mg/dL (70-99) Sodium Level 143 mmol/L (136-145) Potassium Level 5.0 mmol/L (3.5-5.1) Chloride Level 109 mmol/L (98-107) Carbon Dioxide Level 23 mmol/L (21-32) Anion Gap 11 (6-14) Blood Urea Nitrogen 16 mg/dL (7-20) Creatinine 1.3 mg/dL (0.6-1.0) Estimated GFR (Cockcroft-Gault) 38.6 Glucose Level 185 mg/dL (70-99) Calcium Level 8.8 mg/dL (8.5-10.1) Test 04/14/17 07:03 04/14/17 07:28 04/14/17 09:10 Glucose (Fingerstick) 123 mg/dL (70-99) 111 mg/dL (70-99) 90 mg/dL (70-99) Micro URINE CULTURE Preliminary Preliminary report URINE CULTURE RES 1 Preliminary Gram negative rods Greater than 100,000 colony forming units per mL Performed at: [facility] - [address], [place], [place] [id number] Mechanic Insulator: Shaina Bose MD, Phone: [phone] BLOOD CULTURE Final GRAM POSITIVE COCCI IN CLUSTERS, SUGGESTIVE OF STAPH, IN 1 OF 2 BOTTLES, ONE SET DRAWN. CALLED TO RIZWAN BUSTAMANTE RN ON 6S AT 8:30 ON 04/14/17 DW MT SENT TO [facility] FOR FURTHER WORKUP. Objective Assessment Aspiration pneumonia Encephalopathy Hypotension responded to fluids Dementia Hypothermia UTI Plan Plan of Care azucena,, alexis supportive care check cultures MARIA E CABALLERO MD Apr 14, 2017 10:04
--- NOTE | 2017-04-14 10:10 | PDOC ---
PROGRESS NOTES Assessment Hypothermia and hypotension, sepsis No mycoclonus for me, voluntary or more automatistic movements of arms Plan EEG Supportive medical care Holding on anticonvulsants unless EEG shows activity Subjective None Objective Vital Signs Date Time Temp Pulse Resp B/P (MAP) Pulse Ox O2 Delivery O2 Flow Rate FiO2 04/14/17 07:12 97.6 97 16 140/84 (102) 99 Room Air 97.6 Intake and Output 04/14/17 07:00 Intake Total 1100 ml Output Total 3580 ml Balance -2480 ml Intake Oral 0 ml IV Total 1100 ml Output Urine Total 3580 ml PHYSICAL EXAM Eyes closed, Keeps them squeezed shut when I try to examine her eyes Unable to examine eye movements. CN: no focal findings. Muscle tone: normal. Muscle strength: Some voluntary movement of the right arm, not rhythmic or myoclonic DTR: 1+ Plantar reflex: flexor Gait: not examined in bed. Sensory exam: no abnormal findings. No cerebellar signs elicited. Review of Relevant I have reviewed the following items brien (where applicable) has been applied. Labs Laboratory Tests Test 04/12/17 18:20 04/12/17 21:30 04/12/17 21:57 04/12/17 22:20 White Blood Count 7.6 x10^3/uL (4.0-11.0) Red Blood Count 4.17 x10^6/uL (3.50-5.40) Hemoglobin 12.3 g/dL (12.0-15.5) Hematocrit 38.1 % (36.0-47.0) Mean Corpuscular Volume 91 fL (79-100) Mean Corpuscular Hemoglobin 30 pg (25-35) Mean Corpuscular Hemoglobin Concent 32 g/dL (31-37) Red Cell Distribution Width 16.7 % (11.5-14.5) Platelet Count 153 x10^3/uL (140-400) Neutrophils (%) (Auto) 88 % (31-73) Lymphocytes (%) (Auto) 10 % (24-48) Monocytes (%) (Auto) 2 % (0-9) Eosinophils (%) (Auto) 1 % (0-3) Basophils (%) (Auto) 0 % (0-3) Neutrophils # (Auto) 6.6 x10^3uL (1.8-7.7) Lymphocytes # (Auto) 0.7 x10^3/uL (1.0-4.8) Monocytes # (Auto) 0.2 x10^3/uL (0.0-1.1) Eosinophils # (Auto) 0.0 x10^3/uL (0.0-0.7) Basophils # (Auto) 0.0 x10^3/uL (0.0-0.2) Prothrombin Time 13.0 SEC (11.7-14.0) Prothromb Time International Ratio 1.0 (0.8-1.1) Activated Partial Thromboplast Time 55 SEC (24-38) Urine Collection Type U cath Urine Color Yellow Urine Clarity Clear Urine pH 6.0 Urine Specific [place] 1.020 Urine Protein 30 mg/dL (NEG-TRACE) Urine Glucose (UA) Negative mg/dL (NEG) Urine Ketones (Stick) Negative mg/dL (NEG) Urine Blood Trace (NEG) Urine Nitrite Positive (NEG) Urine Bilirubin Negative (NEG) Urine Urobilinogen Dipstick 0.2 mg/dL (0.2 mg/dL) Urine Leukocyte Esterase Moderate (NEG) Urine RBC 1-2 /HPF (0-2) Urine WBC 20-40 /HPF (0-4) Urine Squamous Epithelial Cells Few /LPF Urine Bacteria Moderate /HPF (0-FEW) Urine Hyaline Casts Few /HPF Urine Mucus Slight /LPF Sodium Level 141 mmol/L (136-145) Potassium Level 5.1 mmol/L (3.5-5.1) Chloride Level 106 mmol/L (98-107) Carbon Dioxide Level 30 mmol/L (21-32) Anion Gap 5 (6-14) Blood Urea Nitrogen 22 mg/dL (7-20) Creatinine 1.0 mg/dL (0.6-1.0) Estimated GFR (Cockcroft-Gault) 52.2 BUN/Creatinine Ratio 22 (6-20) Glucose Level 62 mg/dL (70-99) 42 mg/dL (70-99) Lactic Acid Level 1.3 mmol/L (0.4-2.0) Calcium Level 10.0 mg/dL (8.5-10.1) Magnesium Level 2.2 mg/dL (1.8-2.4) Total Bilirubin 0.3 mg/dL (0.2-1.0) Aspartate Amino Transf (AST/SGOT) 91 U/L (15-37) Alanine Aminotransferase (ALT/SGPT) 112 U/L (14-59) Alkaline Phosphatase 135 U/L (46-116) Creatine Kinase 59 U/L (26-192) Total Protein 7.8 g/dL (6.4-8.2) Albumin 3.0 g/dL (3.4-5.0) Albumin/Globulin Ratio 0.6 (1.0-1.7) Lipase 218 U/L (73-393) Thyroid Stimulating Hormone (TSH) 7.955 uIU/mL (0.358-3.74) Cortisol PM Sample 24.3 ug/dL (2.3-11.9) Nasal Screen MRSA (PCR) Negative (Negative) Glucose (Fingerstick) 33 mg/dL (70-99) Test 04/12/17 23:39 04/13/17 03:55 04/13/17 06:04 04/13/17 08:47 Glucose (Fingerstick) 138 mg/dL (70-99) 148 mg/dL (70-99) 52 mg/dL (70-99) White Blood Count 6.7 x10^3/uL (4.0-11.0) Red Blood Count 3.77 x10^6/uL (3.50-5.40) Hemoglobin 11.1 g/dL (12.0-15.5) Hematocrit 34.2 % (36.0-47.0) Mean Corpuscular Volume 91 fL (79-100) Mean Corpuscular Hemoglobin 29 pg (25-35) Mean Corpuscular Hemoglobin Concent 33 g/dL (31-37) Red Cell Distribution Width 16.7 % (11.5-14.5) Platelet Count 127 x10^3/uL (140-400) Neutrophils (%) (Auto) 90 % (31-73) Lymphocytes (%) (Auto) 7 % (24-48) Monocytes (%) (Auto) 3 % (0-9) Eosinophils (%) (Auto) 0 % (0-3) Basophils (%) (Auto) 0 % (0-3) Neutrophils # (Auto) 6.0 x10^3uL (1.8-7.7) Lymphocytes # (Auto) 0.4 x10^3/uL (1.0-4.8) Monocytes # (Auto) 0.2 x10^3/uL (0.0-1.1) Eosinophils # (Auto) 0.0 x10^3/uL (0.0-0.7) Basophils # (Auto) 0.0 x10^3/uL (0.0-0.2) Segmented Neutrophils % 89 % (35-66) Band Neutrophils % 1 % (0-9) Lymphocytes % 8 % (24-48) Monocytes % 2 % (0-10) Toxic Granulation Present Platelet Estimate Decreased (ADEQUATE) Large Platelets Present Anisocytosis Present Sodium Level 141 mmol/L (136-145) Potassium Level 5.8 mmol/L (3.5-5.1) Chloride Level 109 mmol/L (98-107) Carbon Dioxide Level 26 mmol/L (21-32) Anion Gap 6 (6-14) Blood Urea Nitrogen 21 mg/dL (7-20) Creatinine 1.1 mg/dL (0.6-1.0) Estimated GFR (Cockcroft-Gault) 46.8 Glucose Level 49 mg/dL (70-99) Calcium Level 8.8 mg/dL (8.5-10.1) Test 04/13/17 09:51 04/13/17 10:50 04/13/17 11:30 04/13/17 14:11 Glucose (Fingerstick) 170 mg/dL (70-99) 187 mg/dL (70-99) 69 mg/dL (70-99) Potassium Level 5.2 mmol/L (3.5-5.1) Test 04/13/17 14:56 04/13/17 17:10 04/13/17 19:13 04/13/17 21:09 Glucose (Fingerstick) 178 mg/dL (70-99) 109 mg/dL (70-99) 122 mg/dL (70-99) 136 mg/dL (70-99) Test 04/13/17 23:11 04/14/17 01:10 04/14/17 03:00 04/14/17 03:17 Glucose (Fingerstick) 156 mg/dL (70-99) 162 mg/dL (70-99) 163 mg/dL (70-99) Sodium Level 143 mmol/L (136-145) Potassium Level 5.0 mmol/L (3.5-5.1) Chloride Level 109 mmol/L (98-107) Carbon Dioxide Level 23 mmol/L (21-32) Anion Gap 11 (6-14) Blood Urea Nitrogen 16 mg/dL (7-20) Creatinine 1.3 mg/dL (0.6-1.0) Estimated GFR (Cockcroft-Gault) 38.6 Glucose Level 185 mg/dL (70-99) Calcium Level 8.8 mg/dL (8.5-10.1) Test 04/14/17 05:01 04/14/17 07:03 04/14/17 07:28 04/14/17 09:10 Glucose (Fingerstick) 185 mg/dL (70-99) 123 mg/dL (70-99) 111 mg/dL (70-99) 90 mg/dL (70-99) Laboratory Tests Test 04/13/17 10:50 04/13/17 11:30 04/13/17 14:11 04/13/17 14:56 Glucose (Fingerstick) 187 mg/dL (70-99) 69 mg/dL (70-99) 178 mg/dL (70-99) Potassium Level 5.2 mmol/L (3.5-5.1) Test 04/13/17 17:10 04/13/17 19:13 04/13/17 21:09 04/13/17 23:11 Glucose (Fingerstick) 109 mg/dL (70-99) 122 mg/dL (70-99) 136 mg/dL (70-99) 156 mg/dL (70-99) Test 04/14/17 01:10 04/14/17 03:00 04/14/17 03:17 04/14/17 05:01 Glucose (Fingerstick) 162 mg/dL (70-99) 163 mg/dL (70-99) 185 mg/dL (70-99) Sodium Level 143 mmol/L (136-145) Potassium Level 5.0 mmol/L (3.5-5.1) Chloride Level 109 mmol/L (98-107) Carbon Dioxide Level 23 mmol/L (21-32) Anion Gap 11 (6-14) Blood Urea Nitrogen 16 mg/dL (7-20) Creatinine 1.3 mg/dL (0.6-1.0) Estimated GFR (Cockcroft-Gault) 38.6 Glucose Level 185 mg/dL (70-99) Calcium Level 8.8 mg/dL (8.5-10.1) Test 04/14/17 07:03 04/14/17 07:28 04/14/17 09:10 Glucose (Fingerstick) 123 mg/dL (70-99) 111 mg/dL (70-99) 90 mg/dL (70-99) Microbiology 04/12/17 Blood Culture - Final, Complete 04/12/17 Urine Culture - Preliminary, Resulted 04/12/17 Urine Culture Result 1 (MO) - Preliminary, Resulted Medications Current Medications Piperacillin Sod/ Tazobactam Sod 3.375 gm/Sodium Chloride 50 ml @ 100 mls/hr 1X ONCE IV Last administered on 04/12/17 18:29; Start 04/12/17 at 17:45; Stop 04/12/17 at 18:14; Status DC Levofloxacin/ Dextrose 150 ml @ 100 mls/hr 1X ONCE IV Last administered on 19:55; Start 04/12/17 at 19:45; Stop 04/12/17 at 21:14; Status DC Ondansetron HCl (Zofran) 4 mg PRN Q8HRS PRN IV NAUSEA/VOMITING; Start 04/12/17 at 20:30; Stop 04/13/17 at 20:29; Status DC Dextrose (Dextrose 50%-Water Syringe) 25 gm PRN 1X PRN IV LOW BLOOD SUGAR Last administered on 04/13/17 05:42; Start 04/12/17 at 22:00 Sodium Chloride 1,000 ml @ 150 mls/hr 1X ONCE IV Last administered on 22:33; Start 04/12/17 at 22:30; Stop 04/13/17 at 05:09; Status DC Vancomycin HCl 1 gm/Sodium Chloride 250 ml @ 166.667 mls/hr 1X ONCE IV Last administered on 04/12/17 22:33; Start 04/12/17 at 22:30; Stop 04/12/17 at 23:59; Status DC Dopamine HCl/ Dextrose 250 ml @ 16.925 mls/ hr CONT PRN IV SEE I/O RECORD; Start 04/12/17 at 22:30 Sodium Chloride 1,000 ml @ 100 mls/hr Q10H IV Last administered on 04/14/17 05 :21; Start 04/13/17 at 04:00 Piperacillin Sod/ Tazobactam Sod 3.375 gm/Sodium Chloride 50 ml @ 100 mls/hr Q6HRS IV Last administered on 04/14/17 05:21; Start 04/13/17 at 08:00 Dextrose 1,000 ml @ 100 mls/hr Q10H IV Last administered on 04/13/17 08:45; Start 04/13/17 at 08:45; Stop 04/13/17 at 09:24; Status DC Dextrose 500 ml @ As Directed STK-MED ONCE IV ; Start 04/13/17 at 08:53; Stop at 08:54; Status DC Dextrose 1,000 ml @ 100 mls/hr Q10H IV Last administered on 04/14/17 03:35; Start 04/13/17 at 09:30 Vancomycin HCl (Vanco Per Pharmacy) 1 each PRN DAILY PRN MC SEE COMMENTS; Start 04/14/17 at 10:15; Status UNV Active Scripts Active [place] 5-325 Tablet (Acetaminophen/Hydrocodone Bitart) 1 Each Tablet 1 Tab PO PRN TID PRN Reported Nystatin-Triamcinolone Cream (Nystatin/Triamcin) 15 Gm Cream..g. 1 [place] TP BID PRN Nystatin 1 Each Powder.ea. 1 Each PO TID Senokot (Sennosides) 8.6 Mg Tablet 1 Tab PO PRN BID Milk Of Magnesia (Magnesium Hydroxide) 2,400 Mg/10 Ml Oral.susp 30 Ml PO PRN DAILY Lantus Solostar (Insulin Glargine,Hum.rec.anlog) 100 Unit/1 Ml Insuln.pen 10 Unit SQ QHS Docusate Sodium 100 Mg Capsule 1 Cap PO DAILY Tylenol (Acetaminophen) 325 Mg Tablet 650 Mg PO PRN Q6HRS Novolog (Insulin Aspart) 100 Unit/1 Ml Vial 0 SQ QIDACHS Metformin Hcl Er (Metformin Hcl) 500 Mg Tab.er.24h 500 Mg PO DAILYWSUP Citalopram Hbr (Citalopram Hydrobromide) 40 Mg Tablet 10 Mg PO DAILY Aricept (Donepezil Hcl) 23 Mg Tablet 23 Mg PO HS Amlodipine Besylate 10 Mg Tablet 5 Mg PO DAILY Docusate Sodium 100 Mg Tablet 100 Mg PO PRN DAILY Multivitamins (Multivitamin) 1 Each Tab.chew 1 Each PO DAILY Ativan (Lorazepam) 0.5 Mg Tablet 0.5 Mg PO PRN BID PRN Vitals/I & O Vital Sign - Last 24 Hours 04/13/17 04/13/17 04/13/17 04/13/17 11:00 12:00 16:23 19:53 Temp 97.9 98.1 98.8 97.9 98.1 98.8 Pulse 94 94 94 99 Resp 20 19 20 16 B/P (MAP) 99/67 (78) 106/56 (73) 133/70 (91) 187/73 (111) Pulse Ox 100 100 98 100 O2 Delivery Room Air Room Air Room Air Room Air 04/13/17 04/13/17 04/14/17 04/14/17 20:00 23:37 03:05 07:12 Temp 97.9 97.9 97.6 97.9 97.9 97.6 Pulse 101 93 97 Resp 20 18 16 B/P (MAP) 143/80 (101) 136/73 (94) 140/84 (102) Pulse Ox 99 99 99 O2 Delivery Room Air Room Air Room Air Room Air Intake and Output 04/13/17 04/13/17 04/14/17 15:00 23:00 07:00 Intake Total 0 ml 1100 ml Output Total 930 ml 800 ml 1850 ml Balance -930 ml -800 ml -750 ml MAUDE MARTÍNEZ MD Apr 14, 2017 10:10
[2017-04-14 10:58] VITALS: BP 143/63
[2017-04-14] MEDS ORDERED: VANCOMYCIN 2 GM in IV NORMAL SALINE 500ML BAG 500 ML IV ONE (11:30)
[2017-04-14] MEDS: VANCOMYCIN PER PHARMACY MC PRN (14:16)
[2017-04-14 15:06] VITALS: BP 107/62
[2017-04-14 19:47] VITALS: BP 148/60
--- NOTE | 2017-04-14 20:47 | EEG ---
DATE OF SERVICE: 04/14/2017 ATTENDING PHYSICIAN: Khris Andrade M.D. EEG NUMBER: [id number] performed on 04/14/2017. OBJECTIVE: The patient is an 87-year-old female with multiple metabolic problems who has had some possible seizure activity. DESCRIPTION: This is a digital study. Electrodes are placed according to the international 10-20 system. Bipolar and referential montages are available. Activation procedures typically include hyperventilation and intermittent photic stimulation. INTERPRETATION: The waking background consists of 5-6 Hz, 20-50 microvolt activity. There is no reactivity. Sleep is not achieved. Hyperventilation is not performed. Intermittent photic stimulation is noncontributory. IMPRESSION: This electroencephalogram with the patient in an obtunded state is abnormal because of a moderate, diffuse disturbance of cerebral activity consistent with any of a variety of toxic and metabolic encephalopathies. There is no focal, paroxysmal, or epileptiform activity. Thank you for letting us help with the patient's care. MAUDE MARTÍNEZ MD DR: CHIQUIS/mike JOB#: [id number] / [id number]
[2017-04-14 23:22] VITALS: BP 95/53
[2017-04-15] MEDS: IV DEXTROSE 10% 1,000 ML IV SCH ×3 (01:37→21:30)
[2017-04-15 03:47] VITALS: BP 100/55
[2017-04-15] MEDS: IV NORMAL SALINE 1000ML BAG 1,000 ML IV SCH ×2 (05:56→15:14)
[2017-04-15] MEDS: PIPERACILLIN/TAZOBACTAM 3.375 GM in IV NORMAL SALINE 50ML 50 ML IV SCH ×3 (06:20→17:56)
[2017-04-15 07:00] VITALS: BP 152/41
--- NOTE | 2017-04-15 08:41 | PDOC ---
GENERAL General: vss and afebrile. awakens and opens eyes this am but no meaningful interaction. EEG negative for seizure but continues jerking movements. exam stable. klebsiella in urine with sensitivities available. transition to po per ID with dc back to long term when they feel ready. Problems: VITAL SIGNS Vital Signs: Vital Signs Date Time Temp Pulse Resp B/P (MAP) Pulse Ox O2 Delivery O2 Flow Rate FiO2 04/15/17 07:00 97.9 78 20 152/41 (78) 100 Room Air 97.9 I & O I & O Intake and Output 04/15/17 07:00 Intake Total 1323.8 ml Output Total 2550 ml Balance -1226.2 ml Intake Oral 100 ml IV Total 1223.8 ml Output Urine Total 2550 ml ALLERGIES Allergies: Allergies Coded Allergies Type Severity Reaction Last Updated Verified I S O L A T I O N *CONTACT* Allergy Unknown 08/10/16 Yes No Known Medication Allergies Allergy Unknown 08/10/16 Yes MEDS Medications: Current Medications Medications (Trade) Dose Ordered Sig/Phil Start Time Stop Time Status Last Admin Dose Admin Dextrose 1,000 ml @ 100 mls/hr Q10H 04/13/17 09:30 04/15/17 01:37 100 MLS/HR Dextrose (Dextrose 50%-Water Syringe) 25 gm PRN 1X PRN 04/12/17 22:00 04/13/17 05:42 25 GM Dopamine HCl/ Dextrose 250 ml @ 16.925 mls/ hr CONT PRN 04/12/17 22:30 04/14/17 11:12 DC Levofloxacin/ Dextrose 150 ml @ 100 mls/hr 1X ONCE 04/12/17 19:45 04/12/17 21:14 DC 04/12/17 19:55 100 MLS/HR Ondansetron HCl (Zofran) 4 mg PRN Q8HRS PRN 04/12/17 20:30 04/13/17 20:29 DC Piperacillin Sod/ Tazobactam Sod 3.375 gm/Sodium Chloride 50 ml @ 100 mls/hr Q6HRS 04/13/17 08:00 04/15/17 06:20 100 MLS/HR Sodium Chloride 1,000 ml @ 100 mls/hr Q10H 04/13/17 04:00 04/14/17 05:21 100 MLS/HR Vancomycin HCl 1 each 1X ONCE 04/16/17 11:30 04/16/17 11:31 Vancomycin HCl (Vanco Per Pharmacy) 1 each PRN DAILY PRN 04/14/17 10:15 04/14/17 14:16 1 EACH Vancomycin HCl 1.5 gm/Sodium Chloride 500 ml @ 250 mls/hr Q24H 04/15/17 12:00 Vancomycin HCl 1 gm/Sodium Chloride 250 ml @ 166.667 mls/hr 1X ONCE 04/12/17 22:30 04/12/17 23:59 DC 04/12/17 22:33 166.667 MLS/HR Vancomycin HCl 2 gm/Sodium Chloride 500 ml @ 250 mls/hr 1X ONCE 04/14/17 11:30 04/14/17 13:29 DC 04/14/17 11:42 250 MLS/HR LAB Lab: Laboratory Tests Test 04/14/17 09:10 04/14/17 10:47 04/14/17 14:39 04/14/17 18:35 Glucose (Fingerstick) 90 mg/dL (70-99) 131 mg/dL (70-99) 93 mg/dL (70-99) 192 mg/dL (70-99) Test 04/14/17 21:21 04/14/17 22:56 04/15/17 00:58 04/15/17 05:04 Glucose (Fingerstick) 186 mg/dL (70-99) 194 mg/dL (70-99) 116 mg/dL (70-99) 184 mg/dL (70-99) Test 04/15/17 07:53 Glucose (Fingerstick) 160 mg/dL (70-99) DEVIN BROWN MD Apr 15, 2017 08:41
--- NOTE | 2017-04-15 08:55 | PDOC ---
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 SKIN: No rash IV: ok Labs Lab Laboratory Tests Test 04/14/17 09:10 04/14/17 10:47 04/14/17 14:39 04/14/17 18:35 Glucose (Fingerstick) 90 mg/dL (70-99) 131 mg/dL (70-99) 93 mg/dL (70-99) 192 mg/dL (70-99) Test 04/14/17 21:21 04/14/17 22:56 04/15/17 00:58 04/15/17 05:04 Glucose (Fingerstick) 186 mg/dL (70-99) 194 mg/dL (70-99) 116 mg/dL (70-99) 184 mg/dL (70-99) Test 04/15/17 07:53 Glucose (Fingerstick) 160 mg/dL (70-99) Micro URINE CULTURE Preliminary Preliminary report URINE CULTURE RES 1 Preliminary Gram negative rods Greater than 100,000 colony forming units per mL Performed at: [facility] - [facility] [id number] Associate Professor Of Counseling: Shaina Bose MD, Phone: [phone] BLOOD CULTURE Final GRAM POSITIVE COCCI IN CLUSTERS, SUGGESTIVE OF STAPH, IN 1 OF 2 BOTTLES, ONE SET DRAWN. CALLED TO RIZWAN BUSTAMANTE RN ON 6S AT 8:30 ON 04/14/17 DW MT SENT TO [facility] FOR FURTHER WORKUP. Objective Assessment Aspiration pneumonia Encephalopathy Hypotension responded to fluids Dementia Hypothermia UTI BC 1/2 G + cocci, likely contaminant Plan Plan of Care zosyn,, vanc supportive care check cultures MARIA E CABALLERO MD Apr 15, 2017 08:55
--- NOTE | 2017-04-15 10:28 | PDOC ---
PROGRESS NOTES Assessment Hypothermia and hypotension, sepsis No mycoclonus for me, voluntary or more automatistic movements of arms Metabolic encephalopathy Late stage Alzheimer's disease Plan No role for anticonvulsants Consider more of a palliative approach and return to prison Subjective None Objective Vital Signs Date Time Temp Pulse Resp B/P (MAP) Pulse Ox O2 Delivery O2 Flow Rate FiO2 04/15/17 07:00 97.9 78 20 152/41 (78) 100 Room Air 97.9 Intake and Output 04/15/17 07:00 Intake Total 1323.8 ml Output Total 2550 ml Balance -1226.2 ml Intake Oral 100 ml IV Total 1223.8 ml Output Urine Total 2550 ml PHYSICAL EXAM Eyes closed Unable to examine eye movements. CN: no focal findings. Muscle tone: normal. Muscle strength: Some voluntary movement of the right arm, not rhythmic or myoclonic, withdraws both arms with light touch DTR: 1+ Plantar reflex: flexor Gait: not examined in bed. Sensory exam: no abnormal findings. No cerebellar signs elicited. Review of Relevant I have reviewed the following items brien (where applicable) has been applied. Labs Laboratory Tests Test 04/13/17 10:50 04/13/17 11:30 04/13/17 14:11 04/13/17 14:56 Glucose (Fingerstick) 187 mg/dL (70-99) 69 mg/dL (70-99) 178 mg/dL (70-99) Potassium Level 5.2 mmol/L (3.5-5.1) Test 04/13/17 17:10 04/13/17 19:13 04/13/17 21:09 04/13/17 23:11 Glucose (Fingerstick) 109 mg/dL (70-99) 122 mg/dL (70-99) 136 mg/dL (70-99) 156 mg/dL (70-99) Test 04/14/17 01:10 04/14/17 03:00 04/14/17 03:17 04/14/17 05:01 Glucose (Fingerstick) 162 mg/dL (70-99) 163 mg/dL (70-99) 185 mg/dL (70-99) Sodium Level 143 mmol/L (136-145) Potassium Level 5.0 mmol/L (3.5-5.1) Chloride Level 109 mmol/L (98-107) Carbon Dioxide Level 23 mmol/L (21-32) Anion Gap 11 (6-14) Blood Urea Nitrogen 16 mg/dL (7-20) Creatinine 1.3 mg/dL (0.6-1.0) Estimated GFR (Cockcroft-Gault) 38.6 Glucose Level 185 mg/dL (70-99) Calcium Level 8.8 mg/dL (8.5-10.1) Test 04/14/17 07:03 04/14/17 07:28 04/14/17 09:10 04/14/17 10:47 Glucose (Fingerstick) 123 mg/dL (70-99) 111 mg/dL (70-99) 90 mg/dL (70-99) 131 mg/dL (70-99) Test 04/14/17 14:39 04/14/17 18:35 04/14/17 21:21 04/14/17 22:56 Glucose (Fingerstick) 93 mg/dL (70-99) 192 mg/dL (70-99) 186 mg/dL (70-99) 194 mg/dL (70-99) Test 04/15/17 00:58 04/15/17 05:04 04/15/17 07:53 Glucose (Fingerstick) 116 mg/dL (70-99) 184 mg/dL (70-99) 160 mg/dL (70-99) Laboratory Tests Test 04/14/17 10:47 04/14/17 14:39 04/14/17 18:35 04/14/17 21:21 Glucose (Fingerstick) 131 mg/dL (70-99) 93 mg/dL (70-99) 192 mg/dL (70-99) 186 mg/dL (70-99) Test 04/14/17 22:56 04/15/17 00:58 04/15/17 05:04 04/15/17 07:53 Glucose (Fingerstick) 194 mg/dL (70-99) 116 mg/dL (70-99) 184 mg/dL (70-99) 160 mg/dL (70-99) Microbiology 04/12/17 Blood Culture - Final, Complete 04/12/17 Urine Culture - Preliminary, Resulted 04/12/17 Urine Culture Result 1 (MO) - Preliminary, Resulted 04/12/17 Antimicrobic Susceptibility - Preliminary, Resulted Medications Current Medications Piperacillin Sod/ Tazobactam Sod 3.375 gm/Sodium Chloride 50 ml @ 100 mls/hr 1X ONCE IV Last administered on 04/12/17 18:29; Start 04/12/17 at 17:45; Stop 04/12/17 at 18:14; Status DC Levofloxacin/ Dextrose 150 ml @ 100 mls/hr 1X ONCE IV Last administered on 19:55; Start 04/12/17 at 19:45; Stop 04/12/17 at 21:14; Status DC Ondansetron HCl (Zofran) 4 mg PRN Q8HRS PRN IV NAUSEA/VOMITING; Start 04/12/17 at 20:30; Stop 04/13/17 at 20:29; Status DC Dextrose (Dextrose 50%-Water Syringe) 25 gm PRN 1X PRN IV LOW BLOOD SUGAR Last administered on 04/13/17 05:42; Start 04/12/17 at 22:00 Sodium Chloride 1,000 ml @ 150 mls/hr 1X ONCE IV Last administered on 22:33; Start 04/12/17 at 22:30; Stop 04/13/17 at 05:09; Status DC Vancomycin HCl 1 gm/Sodium Chloride 250 ml @ 166.667 mls/hr 1X ONCE IV Last administered on 04/12/17 22:33; Start 04/12/17 at 22:30; Stop 04/12/17 at 23:59; Status DC Dopamine HCl/ Dextrose 250 ml @ 16.925 mls/ hr CONT PRN IV SEE I/O RECORD; Start 04/12/17 at 22:30; Stop 04/14/17 at 11:12; Status DC Sodium Chloride 1,000 ml @ 100 mls/hr Q10H IV Last administered on 04/14/17 05 :21; Start 04/13/17 at 04:00 Piperacillin Sod/ Tazobactam Sod 3.375 gm/Sodium Chloride 50 ml @ 100 mls/hr Q6HRS IV Last administered on 04/15/17 06:20; Start 04/13/17 at 08:00 Dextrose 1,000 ml @ 100 mls/hr Q10H IV Last administered on 04/13/17 08:45; Start 04/13/17 at 08:45; Stop 04/13/17 at 09:24; Status DC Dextrose 500 ml @ As Directed STK-MED ONCE IV ; Start 04/13/17 at 08:53; Stop at 08:54; Status DC Dextrose 1,000 ml @ 100 mls/hr Q10H IV Last administered on 04/15/17 01:37; Start 04/13/17 at 09:30 Vancomycin HCl (Vanco Per Pharmacy) 1 each PRN DAILY PRN MC SEE COMMENTS Last administered on 04/14/17 14:16; Start 04/14/17 at 10:15 Vancomycin HCl 2 gm/Sodium Chloride 500 ml @ 250 mls/hr 1X ONCE IV Last administered on 04/14/17 11:42; Start 04/14/17 at 11:30; Stop 04/14/17 at 13:29; Status DC Vancomycin HCl 1.5 gm/Sodium Chloride 500 ml @ 250 mls/hr Q24H IV ; Start at 12:00 Vancomycin HCl 1 each 1X ONCE MC ; Start 04/16/17 at 11:30; Stop 04/16/17 at 11: 31 Active Scripts Active [place] 5-325 Tablet (Acetaminophen/Hydrocodone Bitart) 1 Each Tablet 1 Tab PO PRN TID PRN Reported Nystatin-Triamcinolone Cream (Nystatin/Triamcin) 15 Gm Cream..g. 1 [place] TP BID PRN Nystatin 1 Each Powder.ea. 1 Each PO TID Senokot (Sennosides) 8.6 Mg Tablet 1 Tab PO PRN BID Milk Of Magnesia (Magnesium Hydroxide) 2,400 Mg/10 Ml Oral.susp 30 Ml PO PRN DAILY Lantus Solostar (Insulin Glargine,Hum.rec.anlog) 100 Unit/1 Ml Insuln.pen 10 Unit SQ QHS Docusate Sodium 100 Mg Capsule 1 Cap PO DAILY Tylenol (Acetaminophen) 325 Mg Tablet 650 Mg PO PRN Q6HRS Novolog (Insulin Aspart) 100 Unit/1 Ml Vial 0 SQ QIDACHS Metformin Hcl Er (Metformin Hcl) 500 Mg Tab.er.24h 500 Mg PO DAILYWSUP Citalopram Hbr (Citalopram Hydrobromide) 40 Mg Tablet 10 Mg PO DAILY Aricept (Donepezil Hcl) 23 Mg Tablet 23 Mg PO HS Amlodipine Besylate 10 Mg Tablet 5 Mg PO DAILY Docusate Sodium 100 Mg Tablet 100 Mg PO PRN DAILY Multivitamins (Multivitamin) 1 Each Tab.chew 1 Each PO DAILY Ativan (Lorazepam) 0.5 Mg Tablet 0.5 Mg PO PRN BID PRN Vitals/I & O Vital Sign - Last 24 Hours 04/14/17 04/14/17 04/14/17 04/14/17 10:58 15:06 19:47 20:00 Temp 97.6 97.7 97.9 97.6 97.7 97.9 Pulse 83 78 83 Resp 17 18 B/P (MAP) 143/63 (89) 107/62 (77) 148/60 (89) Pulse Ox 98 100 98 O2 Delivery Room Air Room Air Room Air Room Air 04/14/17 04/15/17 04/15/17 23:22 03:47 07:00 Temp 97.9 97.8 97.9 97.9 97.8 97.9 Pulse 93 90 78 Resp 18 20 20 B/P (MAP) 95/53 (67) 100/55 (70) 152/41 (78) Pulse Ox 100 98 100 O2 Delivery Room Air Room Air Room Air Intake and Output 04/14/17 04/14/17 04/15/17 15:00 23:00 07:00 Intake Total 1323.8 ml Output Total 1300 ml 1250 ml Balance 23.8 ml -1250 ml MAUDE MARTÍNEZ MD Apr 15, 2017 10:28
[2017-04-15 10:57] VITALS: BP 122/31
[2017-04-15] MEDS: VANCOMYCIN PER PHARMACY MC PRN (11:59)
[2017-04-15] MEDS ORDERED: VANCOMYCIN 1.5 GM in IV NORMAL SALINE 500ML BAG 500 ML IV SCH (12:00)
[2017-04-15 14:52] VITALS: BP 140/61
[2017-04-15 19:43] VITALS: BP 138/65
[2017-04-15 23:12] VITALS: BP 132/52
[2017-04-16] MEDS: IV NORMAL SALINE 1000ML BAG 1,000 ML IV SCH ×3 (02:35→20:18)
[2017-04-16 03:12] VITALS: BP 136/64
[2017-04-16] MEDS: PIPERACILLIN/TAZOBACTAM 3.375 GM in IV NORMAL SALINE 50ML 50 ML IV SCH ×3 (06:07)
[2017-04-16 07:00] VITALS: BP 162/64
--- NOTE | 2017-04-16 08:25 | PDOC ---
GENERAL General: vss and afebrile. more awake and alert this am but minimal interaction. chest clear and heart regular and abdominal benign. still awaiting final ID on blood cultures with ongoing IV antibiotics. sugars good off D10 since last night. hopefully ready for dc soon. Problems: VITAL SIGNS Vital Signs: Vital Signs Date Time Temp Pulse Resp B/P (MAP) Pulse Ox O2 Delivery O2 Flow Rate FiO2 04/16/17 07:00 97.6 66 18 162/64 (96) 99 Room Air 97.6 I & O I & O Intake and Output 04/16/17 07:00 Intake Total 600 ml Output Total 900 ml Balance -300 ml Intake Oral 0 ml IV Total 600 ml Output Urine Total 900 ml ALLERGIES Allergies: Allergies Coded Allergies Type Severity Reaction Last Updated Verified I S O L A T I O N *CONTACT* Allergy Unknown 08/10/16 Yes No Known Medication Allergies Allergy Unknown 08/10/16 Yes MEDS Medications: Current Medications Medications (Trade) Dose Ordered Sig/Phil Start Time Stop Time Status Last Admin Dose Admin Dextrose 1,000 ml @ 100 mls/hr Q10H 04/13/17 09:30 04/15/17 12:28 100 MLS/HR Dextrose (Dextrose 50%-Water Syringe) 25 gm PRN 1X PRN 04/12/17 22:00 04/13/17 05:42 25 GM Dopamine HCl/ Dextrose 250 ml @ 16.925 mls/ hr CONT PRN 04/12/17 22:30 04/14/17 11:12 DC Levofloxacin/ Dextrose 150 ml @ 100 mls/hr 1X ONCE 04/12/17 19:45 04/12/17 21:14 DC 04/12/17 19:55 100 MLS/HR Ondansetron HCl (Zofran) 4 mg PRN Q8HRS PRN 04/12/17 20:30 04/13/17 20:29 DC Piperacillin Sod/ Tazobactam Sod 3.375 gm/Sodium Chloride 50 ml @ 100 mls/hr Q6HRS 04/13/17 08:00 04/16/17 06:07 100 MLS/HR Sodium Chloride 1,000 ml @ 100 mls/hr Q10H 04/13/17 04:00 04/16/17 02:35 100 MLS/HR Vancomycin HCl 1 each 1X ONCE 04/16/17 11:30 04/16/17 11:31 Vancomycin HCl (Vanco Per Pharmacy) 1 each PRN DAILY PRN 04/14/17 10:15 04/15/17 11:59 1 EACH Vancomycin HCl 1.5 gm/Sodium Chloride 500 ml @ 250 mls/hr Q24H 04/15/17 12:00 04/15/17 14:06 250 MLS/HR Vancomycin HCl 1 gm/Sodium Chloride 250 ml @ 166.667 mls/hr 1X ONCE 04/12/17 22:30 04/12/17 23:59 DC 04/12/17 22:33 166.667 MLS/HR Vancomycin HCl 2 gm/Sodium Chloride 500 ml @ 250 mls/hr 1X ONCE 04/14/17 11:30 04/14/17 13:29 DC 04/14/17 11:42 250 MLS/HR LAB Lab: Laboratory Tests Test 04/15/17 11:13 04/15/17 12:53 04/15/17 16:25 04/15/17 17:57 Glucose (Fingerstick) 198 mg/dL (70-99) 156 mg/dL (70-99) 134 mg/dL (70-99) 107 mg/dL (70-99) Test 04/15/17 19:24 04/15/17 21:35 04/15/17 23:35 04/16/17 01:43 Glucose (Fingerstick) 127 mg/dL (70-99) 136 mg/dL (70-99) 130 mg/dL (70-99) 97 mg/dL (70-99) Test 04/16/17 03:58 04/16/17 06:11 04/16/17 07:39 Glucose (Fingerstick) 90 mg/dL (70-99) 130 mg/dL (70-99) 111 mg/dL (70-99) DEVIN BROWN MD Apr 16, 2017 08:25
--- NOTE | 2017-04-16 08:44 | PDOC ---
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 SKIN: No rash IV: ok Labs Lab Laboratory Tests Test 04/15/17 11:13 04/15/17 12:53 04/15/17 16:25 04/15/17 17:57 Glucose (Fingerstick) 198 mg/dL (70-99) 156 mg/dL (70-99) 134 mg/dL (70-99) 107 mg/dL (70-99) Test 04/15/17 19:24 04/15/17 21:35 04/15/17 23:35 04/16/17 01:43 Glucose (Fingerstick) 127 mg/dL (70-99) 136 mg/dL (70-99) 130 mg/dL (70-99) 97 mg/dL (70-99) Test 04/16/17 03:58 04/16/17 06:11 04/16/17 07:39 Glucose (Fingerstick) 90 mg/dL (70-99) 130 mg/dL (70-99) 111 mg/dL (70-99) Micro URINE CULTURE Preliminary Preliminary report URINE CULTURE RES 1 Preliminary Gram negative rods Greater than 100,000 colony forming units per mL Performed at: [facility] - [facility] [address] [facility], [place], [place] [id number] Multimedia Journalist: Shaina Bose MD, Phone: [phone] BLOOD CULTURE Final GRAM POSITIVE COCCI IN CLUSTERS, SUGGESTIVE OF STAPH, IN 1 OF 2 BOTTLES, ONE SET DRAWN. CALLED TO RIZWAN BUSTAMANTE RN ON 6S AT 8:30 ON 04/14/17 DW MT SENT TO [facility] FOR FURTHER WORKUP. Objective Assessment Aspiration pneumonia Encephalopathy Hypotension responded to fluids Dementia Hypothermia UTI BC 1/2 G + cocci, ID still pending Plan Plan of Care zosyn,, vanc supportive care check cultures as soon as blood culture resulted ( d/w Lab ), will change to po for d/c MARIA E CABALLERO MD Apr 16, 2017 08:44
--- NOTE | 2017-04-16 10:58 | PDOC ---
PROGRESS NOTES Assessment Hypothermia and hypotension, sepsis No mycoclonus for me, voluntary or more automatistic movements of arms Metabolic encephalopathy, better Late stage Alzheimer's disease Plan Will follow as needed Subjective None Objective Vital Signs Date Time Temp Pulse Resp B/P (MAP) Pulse Ox O2 Delivery O2 Flow Rate FiO2 04/16/17 07:00 97.6 66 18 162/64 (96) 99 Room Air 97.6 Intake and Output 04/16/17 07:00 Intake Total 600 ml Output Total 900 ml Balance -300 ml Intake Oral 0 ml IV Total 600 ml Output Urine Total 900 ml PHYSICAL EXAM Eyes open, trying to eat breakfast Nonverbal PERRL, EOMI CN: no focal findings. Muscle tone: normal. Muscle strength: Moves all extremities DTR: 1+ Plantar reflex: flexor Gait: not examined in bed. Sensory exam: no abnormal findings. No cerebellar signs elicited. Review of Relevant I have reviewed the following items brien (where applicable) has been applied. Labs Laboratory Tests Test 04/14/17 14:39 04/14/17 18:35 04/14/17 21:21 04/14/17 22:56 Glucose (Fingerstick) 93 mg/dL (70-99) 192 mg/dL (70-99) 186 mg/dL (70-99) 194 mg/dL (70-99) Test 04/15/17 00:58 04/15/17 05:04 04/15/17 07:53 04/15/17 11:13 Glucose (Fingerstick) 116 mg/dL (70-99) 184 mg/dL (70-99) 160 mg/dL (70-99) 198 mg/dL (70-99) Test 04/15/17 12:53 04/15/17 16:25 04/15/17 17:57 04/15/17 19:24 Glucose (Fingerstick) 156 mg/dL (70-99) 134 mg/dL (70-99) 107 mg/dL (70-99) 127 mg/dL (70-99) Test 04/15/17 21:35 04/15/17 23:35 04/16/17 01:43 04/16/17 03:58 Glucose (Fingerstick) 136 mg/dL (70-99) 130 mg/dL (70-99) 97 mg/dL (70-99) 90 mg/dL (70-99) Test 04/16/17 06:11 04/16/17 07:39 04/16/17 09:56 Glucose (Fingerstick) 130 mg/dL (70-99) 111 mg/dL (70-99) 138 mg/dL (70-99) Laboratory Tests Test 04/15/17 11:13 04/15/17 12:53 04/15/17 16:25 04/15/17 17:57 Glucose (Fingerstick) 198 mg/dL (70-99) 156 mg/dL (70-99) 134 mg/dL (70-99) 107 mg/dL (70-99) Test 04/15/17 19:24 04/15/17 21:35 04/15/17 23:35 04/16/17 01:43 Glucose (Fingerstick) 127 mg/dL (70-99) 136 mg/dL (70-99) 130 mg/dL (70-99) 97 mg/dL (70-99) Test 04/16/17 03:58 04/16/17 06:11 04/16/17 07:39 04/16/17 09:56 Glucose (Fingerstick) 90 mg/dL (70-99) 130 mg/dL (70-99) 111 mg/dL (70-99) 138 mg/dL (70-99) Microbiology 04/12/17 Blood Culture - Preliminary, Resulted 04/12/17 Blood Culture Result 1 ([place]) - Preliminary, Resulted 04/12/17 Urine Culture - Final, Complete 04/12/17 Urine Culture Result 1 ([place]) - Final, Complete 04/12/17 Urine Culture Result 2 ([place]) - Final, Complete 04/12/17 Antimicrobic Susceptibility - Final, Complete Medications Current Medications Piperacillin Sod/ Tazobactam Sod 3.375 gm/Sodium Chloride 50 ml @ 100 mls/hr 1X ONCE IV Last administered on 04/12/17 18:29; Start 04/12/17 at 17:45; Stop 04/12/17 at 18:14; Status DC Levofloxacin/ Dextrose 150 ml @ 100 mls/hr 1X ONCE IV Last administered on 19:55; Start 04/12/17 at 19:45; Stop 04/12/17 at 21:14; Status DC Ondansetron HCl (Zofran) 4 mg PRN Q8HRS PRN IV NAUSEA/VOMITING; Start 04/12/17 at 20:30; Stop 04/13/17 at 20:29; Status DC Dextrose (Dextrose 50%-Water Syringe) 25 gm PRN 1X PRN IV LOW BLOOD SUGAR Last administered on 04/13/17 05:42; Start 04/12/17 at 22:00 Sodium Chloride 1,000 ml @ 150 mls/hr 1X ONCE IV Last administered on 22:33; Start 04/12/17 at 22:30; Stop 04/13/17 at 05:09; Status DC Vancomycin HCl 1 gm/Sodium Chloride 250 ml @ 166.667 mls/hr 1X ONCE IV Last administered on 04/12/17 22:33; Start 04/12/17 at 22:30; Stop 04/12/17 at 23:59; Status DC Dopamine HCl/ Dextrose 250 ml @ 16.925 mls/ hr CONT PRN IV SEE I/O RECORD; Start 04/12/17 at 22:30; Stop 04/14/17 at 11:12; Status DC Sodium Chloride 1,000 ml @ 100 mls/hr Q10H IV Last administered on 04/16/17 02 :35; Start 04/13/17 at 04:00 Piperacillin Sod/ Tazobactam Sod 3.375 gm/Sodium Chloride 50 ml @ 100 mls/hr Q6HRS IV Last administered on 04/16/17 06:07; Start 04/13/17 at 08:00; Stop 04/16 at 08:55; Status DC Dextrose 1,000 ml @ 100 mls/hr Q10H IV Last administered on 04/13/17 08:45; Start 04/13/17 at 08:45; Stop 04/13/17 at 09:24; Status DC Dextrose 500 ml @ As Directed STK-MED ONCE IV ; Start 04/13/17 at 08:53; Stop at 08:54; Status DC Dextrose 1,000 ml @ 100 mls/hr Q10H IV Last administered on 04/15/17 12:28; Start 04/13/17 at 09:30 Vancomycin HCl (Vanco Per Pharmacy) 1 each PRN DAILY PRN MC SEE COMMENTS Last administered on 04/15/17 11:59; Start 04/14/17 at 10:15; Stop 04/16/17 at 08:55; Status DC Vancomycin HCl 2 gm/Sodium Chloride 500 ml @ 250 mls/hr 1X ONCE IV Last administered on 04/14/17 11:42; Start 04/14/17 at 11:30; Stop 04/14/17 at 13:29; Status DC Vancomycin HCl 1.5 gm/Sodium Chloride 500 ml @ 250 mls/hr Q24H IV Last administered on 04/15/17 14:06; Start 04/15/17 at 12:00; Stop 04/16/17 at 08:55; Status DC Vancomycin HCl 1 each 1X ONCE MC ; Start 04/16/17 at 11:30; Stop 04/16/17 at 11: 31 Cefpodoxime Proxetil (Vantin) 100 mg BID PO ; Start 04/16/17 at 09:00 Active Scripts Active Jean 5-325 Tablet (Acetaminophen/Hydrocodone Bitart) 1 Each Tablet 1 Tab PO PRN TID PRN Reported Nystatin-Triamcinolone Cream (Nystatin/Triamcin) 15 Gm Cream..g. 1 [place] TP BID PRN Nystatin 1 Each Powder.ea. 1 Each PO TID Senokot (Sennosides) 8.6 Mg Tablet 1 Tab PO PRN BID Milk Of Magnesia (Magnesium Hydroxide) 2,400 Mg/10 Ml Oral.susp 30 Ml PO PRN DAILY Lantus Solostar (Insulin Glargine,Hum.rec.anlog) 100 Unit/1 Ml Insuln.pen 10 Unit SQ QHS Docusate Sodium 100 Mg Capsule 1 Cap PO DAILY Tylenol (Acetaminophen) 325 Mg Tablet 650 Mg PO PRN Q6HRS Novolog (Insulin Aspart) 100 Unit/1 Ml Vial 0 SQ QIDACHS Metformin Hcl Er (Metformin Hcl) 500 Mg Tab.er.24h 500 Mg PO DAILYWSUP Citalopram Hbr (Citalopram Hydrobromide) 40 Mg Tablet 10 Mg PO DAILY Aricept (Donepezil Hcl) 23 Mg Tablet 23 Mg PO HS Amlodipine Besylate 10 Mg Tablet 5 Mg PO DAILY Docusate Sodium 100 Mg Tablet 100 Mg PO PRN DAILY Multivitamins (Multivitamin) 1 Each Tab.chew 1 Each PO DAILY Ativan (Lorazepam) 0.5 Mg Tablet 0.5 Mg PO PRN BID PRN Vitals/I & O Vital Sign - Last 24 Hours 04/15/17 04/15/17 04/15/17 04/15/17 14:52 19:43 20:00 23:12 Temp 97.9 97.6 97.3 97.9 97.6 97.3 Pulse 62 75 68 Resp 18 20 18 B/P (MAP) 140/61 (87) 138/65 (89) 132/52 (78) Pulse Ox 98 99 100 O2 Delivery Room Air Room Air Room Air Room Air 04/16/17 04/16/17 03:12 07:00 Temp 96.8 97.6 96.8 97.6 Pulse 65 66 Resp 18 18 B/P (MAP) 136/64 (88) 162/64 (96) Pulse Ox 97 99 O2 Delivery Room Air Room Air Intake and Output 04/15/17 04/15/17 04/16/17 15:00 23:00 07:00 Intake Total 550 ml 50 ml Output Total 900 ml Balance 550 ml -850 ml MAUDE MARTÍNEZ MD Apr 16, 2017 10:58
[2017-04-16 11:00] VITALS: BP 104/63
[2017-04-16 15:00] VITALS: BP 124/55
[2017-04-16] MEDS: CEFPODOXIME PROXETIL 100 MG TABLET. PO SCH ×2 (16:37→20:18)
[2017-04-16 19:57] VITALS: BP 108/63
[2017-04-16] MEDS: IV DEXTROSE 10% 1,000 ML IV SCH (20:09)
[2017-04-16 23:39] VITALS: BP 134/62
[2017-04-17 03:12] VITALS: BP 122/63
[2017-04-17] MEDS: IV DEXTROSE 10% 1,000 ML IV SCH (05:22)
[2017-04-17] MEDS: IV NORMAL SALINE 1000ML BAG 1,000 ML IV SCH (05:59)
[2017-04-17 07:00] VITALS: BP 146/63
[2017-04-17] MEDS: CEFPODOXIME PROXETIL 100 MG TABLET. PO SCH (09:11)
[2017-04-17] MEDS ORDERED: NYSTATIN/TRIAMCIN TOPICAL CREAM 15GM TUBE. TP PRN (10:00)
[2017-04-17] MEDS ORDERED: LORazepam 0.5 MG TABLET PO PRN (10:00)
[2017-04-17] MEDS ORDERED: ACETAMINOPHEN 325 MG TABLET. PO PRN (10:00)
[2017-04-17] MEDS ORDERED: SENNOSIDES 8.6 MG TABLET PO PRN (10:00)
[2017-04-17] MEDS ORDERED: MAGNESIUM HYDROXIDE 2,400 MG/30 ML ORAL.SUSP. PO PRN (10:00)
[2017-04-17] MEDS ORDERED: HYDROcodone/APAP 5/325MG 1 TAB TABLET PO PRN (10:00)
--- NOTE | 2017-04-17 10:00 | PDOC ---
Provider Note Provider Note [id number] ZOHAIB SNIDER MD Apr 17, 2017 10:00
[2017-04-17] MEDS ORDERED: CITALOPRAM 10 MG TABLET. PO SCH (10:30)
[2017-04-17] MEDS ORDERED: DOCUSATE SODIUM 100 MG CAPSULE. PO SCH (10:30)
[2017-04-17 10:55] VITALS: BP 116/56
--- NOTE | 2017-04-17 13:41 | PDOC ---
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 neurologic deficit SKIN: No rash IV: ok Labs Lab Laboratory Tests Test 04/16/17 14:09 04/16/17 16:04 04/16/17 20:09 04/16/17 23:33 Glucose (Fingerstick) 115 mg/dL (70-99) 100 mg/dL (70-99) 188 mg/dL (70-99) 120 mg/dL (70-99) Test 04/17/17 01:21 04/17/17 03:02 04/17/17 05:06 04/17/17 07:18 Glucose (Fingerstick) 109 mg/dL (70-99) 104 mg/dL (70-99) 91 mg/dL (70-99) 84 mg/dL (70-99) Test 04/17/17 11:51 Glucose (Fingerstick) 80 mg/dL (70-99) Micro Klebsiella pneumoniae Greater than 100,000 colony forming units per mL URINE CULTURE RES 2 Final Morganella morganii 25,000-50,000 colony forming units per mL ANTIMICROBIAL SUSCEPTIBILITY Final Comment S = Susceptible; I = Intermediate; R = Resistant P = Positive; N = Negative MICS are expressed in micrograms per mL Antibiotic RSLT#1 RSLT#2 RSLT#3 RSLT#4 Amoxicillin/Clavulanic Acid S R Ampicillin R R Cefazolin R Cefepime S S Ceftriaxone S S Cefuroxime S R Cephalothin S R Ciprofloxacin S R Ertapenem S S Gentamicin S S Imipenem S Levofloxacin S I Nitrofurantoin S R Piperacillin S S Tetracycline S R Tobramycin S S Trimethoprim/Sulfa S R Objective Assessment Aspiration pneumonia Dementia Hypothermia UTI - treated BC 11/09 STCN - contamination Plan Plan of Care Cont Vantin for 2 more days for aspiration NISSA ESCALONA MD Apr 17, 2017 13:41
[2017-04-17] MEDS ORDERED: metFORMIN XR 500 MG TAB.ER.24H PO SCH (17:00)
--- NOTE | 2017-04-17 18:05 | DS ---
DATE OF DISCHARGE: 04/17/2017 HOSPITAL SUMMARY: An 87-year-old female with advanced dementia, came in with fever, weakness, and fatigue. Urinalysis was consistent with infection. CBC unremarkable. Chemistry profile showed normal blood sugars throughout with no medications given and creatinine was slightly elevated at 1.3, a GFR of approximately 40. Urine culture grew out both and Morganella and Klebsiella, and she was treated with Rocephin and vancomycin until she was switched to oral Vantin. She has remained stable. As she has advanced dementia and she is a DNR, she will return to the residential. She had only 1 of 2 blood cultures positive for Gram-positive clusters and was felt to likely be contaminant. CONSULTANTS: Dr. Jefferson and Dr. Pavel Puckett. FINAL DIAGNOSES: 1. Urinary tract infection. 2. Systemic inflammatory response syndrome. 3. Advanced Alzheimer's dementia. OPERATIONS, PROCEDURES, COMPLICATIONS: None. DISPOSITION: Home meds remain the same. We will taper off her insulin and amlodipine as these appear no longer to be needed. Vantin 100 mg twice a day for 5 more days. DNR and comfort care. ZOHAIB SNIDER MD DR: CHINEDU/mike JOB#: [id number] / [id number]
[2017-04-18] MEDS ORDERED: DONEPEZIL HCL 10 MG TABLET. PO SCH (21:00)
== END 2017-04-17 15:00 | DRG 177 ==
LOC: ER 17:28 → 1 WEST ICU 19:32 → 6 SOUTH 04-13 16:21
PROVIDERS: ADMIT Family Medicine; ATTEND Family Medicine
DX: J69.0 Pneumonitis due to inhalation of food and vomit (principal); G93.41 Metabolic encephalopathy; N39.0 Urinary tract infection, site not specified; I10 Essential (primary) hypertension; F41.9 Anxiety disorder, unspecified; F32.9 Major depressive disorder, single episode, unspecified; E11.9 Type 2 diabetes mellitus without complications; E78.5 Hyperlipidemia, unspecified; E83.42 Hypomagnesemia; F02.80 Dementia in other diseases classified elsewhere, unspecified severity, without behavioral disturbance, psychotic disturbance, mood disturbance, and anxiety; G30.9 Alzheimer's disease, unspecified; Z66 Do not resuscitate; Z85.3 Personal history of malignant neoplasm of breast; Z90.12 Acquired absence of left breast and nipple; M19.90 Unspecified osteoarthritis, unspecified site; Z51.5 Encounter for palliative care; Z90.49 Acquired absence of other specified parts of digestive tract; Z90.710 Acquired absence of both cervix and uterus; Z79.4 Long term (current) use of insulin
CPT/HCPCS: 36415; 71010; 80048; 80053; 80202; 81001; 82533; 82550; 82947; 82962; 83605; 83690; 83735; 84132; 84443; 85007; 85027; 85610; 85730; 87040; 87086; 87186; 87205; 87641; 95816; 96365; 96375; J1956; J2543; J3370; J7030; J7040; J7042; J7050; 99291-25